=== PATIENT | female | born 1970 | race Caucasian/White ===

== ENCOUNTER → 2017-03-06 | Outpatient (CLI) | payer BC ==
[~2017-03-06] MED LIST: ASTRAGALUS PO; CAT PO; CEPH500C2 PO; EFF/375 PO; FEXO1TAB46 PO; GADAVIST IV PRN; OXYC-57 PO; PROC1TAB5 PO; PSYL55.43 PO; SKULLCAP PO; TURMPOW2 PO; Vit C PO; Vit D3 PO; [UNRECOGNIZED DRUG - OTHER] PO; [UNRECOGNIZED DRUG - OTHER] PO
--- NOTE | 2017-03-06 19:37 | DIAGNOSTIC IMAGING REPORT ---
LUMBAR SPINE MRI WITH AND WITHOUT CONTRAST HISTORY: Pain COLORECTAL CANCER C19 TECHNIQUE: Multiplanar multisequence MRI of the lumbar spine was performed both before and after the intravenous administration of contrast. COMPARISON: PET/CT dated 06/01/2016 FINDINGS: For the purpose of the report the L5-S1 disc space will be located on axial image . No prior studies available for comparison specifically of the lumbar region despite history of an abnormal study in November of this year. Signal characteristics of the vertebral bodies are unremarkable. Mild disc desiccation throughout. Mild disc bulges L4-L5 and L5-S1. No abnormal postcontrast sagittal enhancement L1-L2: No significant central canal or neural foraminal narrowing. L2-L3: No significant central canal or neural foraminal narrowing. L3-L4: No significant central canal or neural foraminal narrowing. L4-L5: Mild broad-based disc bulge. Minimal impact of the anterior thecal sac. Moderate degenerative change posterior limits. L5-S1: Mild disc bulge. Minimal contact with the anterior thecal sac. IMPRESSION: 1. Minimal to/mild broad-based disc bulges L4-L5 and L5-S1. 2. No evidence for significant disc herniation or spinal stenosis. 3. No evidence for an abnormal enhancing mass based on this exam. Electronically signed by: Carlos Grey M.D. 03/06/2017 7:35 PM Dictated Date/Time: 03/06/2017 7:30 PM
== END | disposition home or self-care (01) ==
LOC: C.MRI 18:34
PROVIDERS: ATTEND Nurse Practitioner Family
DX: C19 Malignant neoplasm of rectosigmoid junction (principal)

== ENCOUNTER 2017-05-18 13:20 | Emergency (ER) | payer BC ==
[~2017-05-18] VITALS: Ht 167.6 cm; Wt 79.0 kg
[~2017-05-18 13:20] MED LIST changes: -GADAVIST IV PRN; -OXYC-57 PO
[2017-05-18 13:29] VITALS: Ht 167.6 cm; Wt 79.0 kg
[2017-05-18] MEDS ORDERED: RABIES VACCINE (IMOVAX) HUMAN DIPL CELL 2.5 INTER.UNIT/ML SYR IM. ONE (14:00)
[2017-05-18] MEDS ORDERED: RABIES IMMUNE GLOBULIN (HUMAN) 150 INTER.UNIT/ML 2 ML VIAL IM. ONE (14:30)
--- NOTE | 2017-05-18 14:47 | EMERGENCY ROOM VISIT NOTE ---
History First contact with patient: 13:34 Chief Complaint: RABIES VACCINE Stated Complaint: RABIES SERIES History of Present Illness The patient is a 46 year old female who presents to the Emergency Room with family for evaluation of a bat exposure. The patient awakened in a bedroom where a live bat was found. The family killed the bat and then carefully took it outside. There was no bare hand contact with the bat. The family now presents to the emergency department for the rabies postexposure prophylaxis series. Review of Systems 6 system review was performed and was negative except for pertinent positives and negatives as indicated in history of present illness Past Medical/Surgical History Medical Problems: (1) Colorectal cancer Surgical Problems: (1) History of abdominal surgery Family History FH: cancer FH: diabetes mellitus FH: heart disease FH: hypertension Social History Smoking Status: Never Smoker Alcohol Use: none Drug Use: none Housing Status: lives with family Occupation Status: employed Current/Historical Medications No Active Prescriptions or Reported Meds Allergies Coded Allergies: Sumatriptan (Verified Allergy, Intermediate, Hot Sensations, Skin "Prickly " feeling, 12/16/15) Hydromorphone (Verified Adverse Reaction, Intermediate, Migraine, 12/16/15) Physical Exam Vital Signs Date Time Temp Pulse Resp B/P (MAP) Pulse Ox O2 Delivery O2 Flow Rate FiO2 05/18/17 13:29 36.7 73 18 109/74 99 Room Air Physical Exam CONSTITUTIONAL: Healthy and well nourished. Patient does not appear in any acute distress. HEENT: Normocephalic, atraumatic. Pupils equal, round and reactive. NECK: Full active range of motion without discomfort. RESPIRATORY: Clear to auscultation bilaterally with no wheezing, crackles, rhonchi or stridor. CARDIOVASCULAR: Regular rate and rhythm with no murmurs, rubs or gallops. INTEGUMENTARY: No rash or other significant dermatologic conditions noted. NEUROLOGIC: No focal neurologic deficits noted. Medical Decision & Procedures ED Course Patient history and physical exam were performed. Nurse's notes were reviewed. The patient was administered Imovax and HRIG 20 units per kilogram without any adverse reaction. The family was instructed to return on days 3, 7 and 14 for subsequent immunizations. Although the patient does have a history of colorectal cancer, she reports that she has recovered well, and has no further immunosuppression or compromise. Medical Decision Impression Primary Impression: Need for prophylactic vaccination against rabies Departure Information Dispostion Home / Self-Care Prescriptions No Active Prescriptions or Reported Meds Referrals No Doctor, Assigned Forms HOME CARE DOCUMENTATION FORM, IMPORTANT VISIT INFORMATION Patient Instructions My [facility] Additional Instructions Return on the following dates: Day 3 (05/21) Day 7 (05/25) Day 14 (06/01)
[2017-05-18 16:16] VITALS: BP 109/74; PULSE 73; TEMP 36.7; O2SAT 99
[2017-08-25] MEDS ORDERED: OXYC-57 PO (08:41)
== END 2017-05-18 16:17 | disposition home or self-care (01) ==
LOC: C.EDB 13:22 → C.EDD 16:17
DX: Z23 Encounter for immunization (principal); Z20.3 Contact with and (suspected) exposure to rabies; Z85.038 Personal history of other malignant neoplasm of large intestine; Z98.890 Other specified postprocedural states; Z88.5 Allergy status to narcotic agent; Z88.8 Allergy status to other drugs, medicaments and biological substances; Z80.9 Family history of malignant neoplasm, unspecified; Z83.3 Family history of diabetes mellitus; Z82.49 Family history of ischemic heart disease and other diseases of the circulatory system

== ENCOUNTER 2017-05-21 06:46 | Emergency (ER) | payer BC ==
[~2017-05-21] VITALS: Ht 167.6 cm; Wt 77.6 kg
[2017-05-21 06:50] VITALS: BP 106/76; PULSE 64; TEMP 36.9; O2SAT 100; Ht 167.6 cm; Wt 77.6 kg
[2017-05-21] MEDS ORDERED: RABIES VACCINE (IMOVAX) HUMAN DIPL CELL 2.5 INTER.UNIT/ML SYR IM. ONE (07:00)
--- NOTE | 2017-05-21 07:07 | EMERGENCY ROOM VISIT NOTE ---
ED Visit Note First contact with patient: 06:54 CHIEF COMPLAINT: Need second rabies shots HISTORY OF PRESENT ILLNESS: This 46-year-old female patient presents to the ER for her second rabies vaccine. The patient was seen here initially 3 days ago when she found a bat in her daughter's house where she was a bee sitting her granddaughter. The patient did not have any problems with the prior vaccine. REVIEW OF SYSTEMS: 6 system review was performed and was negative unless stated otherwise in history of present illness. PMH: The patient is healthy; colorectal cancer SOCIAL HISTORY: Patient lives with her family. The patient denies any tobacco or alcohol use. PHYSICAL EXAM: Vital Signs: Were reviewed Reviewed Nurse's notes. GENERAL: 38- year-old white female appears in no acute distress. MENTAL Status: Alert and oriented 3. SKIN: Clear, no visible bites noted EMERGENCY DEPARTMENT COURSE: The patient was evaluated. The patient was given Imovax IM. The patient was discharged home in stable condition. DIAGNOSIS: Post exposure rabies prophylaxis DISCHARGE INSTRUCTIONS: Continue rabies vaccine schedule as previously directed. Current/Historical Medications No Active Prescriptions or Reported Meds Allergies Coded Allergies: Sumatriptan (Verified Allergy, Intermediate, Hot Sensations, Skin "Prickly " feeling, 12/16/15) Hydromorphone (Verified Adverse Reaction, Intermediate, Migraine, 12/16/15) Vital Signs Date Time Temp Pulse Resp B/P (MAP) Pulse Ox O2 Delivery O2 Flow Rate FiO2 05/21/17 06:50 36.9 64 18 106/76 100 Room Air Departure Information Prescriptions No Active Prescriptions or Reported Meds Referrals Blanca Atkins, C.R.N.PMigue (PCP) Patient Instructions [facility]
[2017-08-25] MEDS ORDERED: OXYC-57 PO (08:41)
== END 2017-05-21 07:24 | disposition home or self-care (01) ==
LOC: C.EDB 06:47 → C.EDA 07:24
DX: Z23 Encounter for immunization (principal); Z20.3 Contact with and (suspected) exposure to rabies

== ENCOUNTER 2017-05-25 07:15 | Emergency (ER) | payer BC ==
[~2017-05-25] VITALS: Ht 167.6 cm; Wt 77.7 kg
[2017-05-25 07:19] VITALS: BP 112/75; PULSE 75; TEMP 36.6; O2SAT 99; Ht 167.6 cm; Wt 77.7 kg
--- NOTE | 2017-05-25 07:25 | EMERGENCY ROOM VISIT NOTE ---
History First contact with patient: 07:21 Chief Complaint: RABIES VACCINE REPEAT VISIT Stated Complaint: REPEAT RABIES History of Present Illness The patient is a 46 year old female who presents to the Emergency Room for her third Imovax injection on day 7. The patient denies any adverse reactions to her prior injections. The patient and family were started on post exposure prophylaxis after being exposed to a bat in the bedroom while sleeping. Although they discarded initial bat, they did capture another bat that was tested positive for rabies. The patient reports that the health department is going to quarantine the place until pest control can address the issue. Review of Systems 6 system review was performed and was negative except for pertinent positives and negatives as indicated in history of present illness Past Medical/Surgical History Medical Problems: (1) Colorectal cancer Surgical Problems: (1) History of abdominal surgery Family History FH: cancer FH: diabetes mellitus FH: heart disease FH: hypertension Social History Smoking Status: Former Smoker Alcohol Use: none Drug Use: none Housing Status: lives with family Occupation Status: employed Current/Historical Medications No Active Prescriptions or Reported Meds Allergies Coded Allergies: Sumatriptan (Verified Allergy, Intermediate, Hot Sensations, Skin "Prickly " feeling, 05/25/17) Hydromorphone (Verified Adverse Reaction, Intermediate, Migraine, 05/25/17) Physical Exam Vital Signs Date Time Temp Pulse Resp B/P (MAP) Pulse Ox O2 Delivery O2 Flow Rate FiO2 05/25/17 07:19 36.6 75 16 112/75 99 Room Air Physical Exam CONSTITUTIONAL: Healthy and well nourished. HEENT: Normocephalic, atraumatic. Pupils equal, round and reactive. No scleral icterus. INTEGUMENTARY: No rash or other significant dermatologic conditions noted. NEUROLOGIC: No focal neurologic deficits noted. Medical Decision & Procedures Medications Administered Medications (Trade) Dose Ordered Sig/Tal Route Start Time Stop Time Status Last Admin Dose Admin Rabies Vaccine Human Diploid Cell (Imovax Rabies) 2.5 interunit ONCE ONCE IM. 05/25/17 07:30 05/25/17 07:31 DC 05/25/17 07:47 2.5 INTERUNIT ED Course Patient history and physical exam were performed. Vital signs were reviewed and normal. The patient received Imovax IM without any adverse reaction. She will return on day 14 for her fourth and final injection. Medical Decision Impression Primary Impression: Need for prophylactic vaccination against rabies Departure Information Dispostion Home / Self-Care Prescriptions No Active Prescriptions or Reported Meds Forms HOME CARE DOCUMENTATION FORM, IMPORTANT VISIT INFORMATION Patient Instructions My [facility] Additional Instructions Return on 06/01 for your next and final Imovax injection
[2017-05-25] MEDS ORDERED: RABIES VACCINE (IMOVAX) HUMAN DIPL CELL 2.5 INTER.UNIT/ML SYR IM. ONE (07:30)
[2017-08-25] MEDS ORDERED: OXYC-57 PO (08:41)
== END 2017-05-25 08:04 | disposition home or self-care (01) ==
LOC: C.EDB 07:16 → C.EDA 08:04
DX: Z23 Encounter for immunization (principal); Z20.3 Contact with and (suspected) exposure to rabies; Z85.038 Personal history of other malignant neoplasm of large intestine; Z87.891 Personal history of nicotine dependence; Z83.3 Family history of diabetes mellitus; Z82.49 Family history of ischemic heart disease and other diseases of the circulatory system

== ENCOUNTER 2017-06-01 06:56 | Emergency (ER) | payer BC ==
[~2017-06-01] VITALS: Ht 167.6 cm; Wt 77.7 kg
[2017-06-01 06:59] VITALS: BP 105/71; PULSE 78; TEMP 36.5; O2SAT 95; Ht 167.6 cm; Wt 77.7 kg
--- NOTE | 2017-06-01 07:05 | EMERGENCY ROOM VISIT NOTE ---
ED Visit Note First contact with patient: 07:01 History of Present Illness The patient is a 46 year old female who presents to the Emergency Room for final rabies vaccine. The patient initially had a bat in her bedroom. No known bite. The patient denies any problems prior vaccines. Review of Systems 6 system review was performed and was negative except for pertinent positives and negatives as indicated in history of present illness Past Medical/Surgical History Medical Problems: (1) Colorectal cancer Surgical Problems: (1) History of abdominal surgery Family History FH: cancer FH: diabetes mellitus FH: heart disease FH: hypertension Social History Smoking Status: Never Smoker Alcohol Use: none Drug Use: none Housing Status: lives with family Occupation Status: employed Current/Historical Medications No Active Prescriptions or Reported Meds Allergies Coded Allergies: Sumatriptan (Verified Allergy, Intermediate, Hot Sensations, Skin "Prickly " feeling, 12/16/15) Hydromorphone (Verified Adverse Reaction, Intermediate, Migraine, 12/16/15) PHYSICAL EXAM: Vital Signs: Were reviewed Reviewed Nurse's notes. GEN.: 46-year -old female appears in no acute distress. MENTAL Status: Alert and oriented 3. EMERGENCY DEPARTMENT COURSE: The patient was given Imovax IM. DIAGNOSIS: Post exposure rabies prophylaxis DISCHARGE INSTRUCTIONS: No further vaccines necessary. Current/Historical Medications No Active Prescriptions or Reported Meds Allergies Coded Allergies: Sumatriptan (Verified Allergy, Intermediate, Hot Sensations, Skin "Prickly " feeling, 05/25/17) Hydromorphone (Verified Adverse Reaction, Intermediate, Migraine, 05/25/17) Vital Signs Date Time Temp Pulse Resp B/P (MAP) Pulse Ox O2 Delivery O2 Flow Rate FiO2 06/01/17 06:59 36.5 78 16 105/71 95 Room Air Departure Information Prescriptions No Active Prescriptions or Reported Meds Referrals Blanca Atkins C.R.NMiguePMigue (PCP) [facility] Instructions [facility]
[2017-06-01] MEDS ORDERED: RABIES VACCINE (IMOVAX) HUMAN DIPL CELL 2.5 INTER.UNIT/ML SYR IM. ONE (07:15)
[2017-08-25] MEDS ORDERED: OXYC-57 PO (08:41)
== END 2017-06-01 07:23 | disposition home or self-care (01) ==
LOC: C.EDB 06:57 → C.EDA 07:23
DX: Z23 Encounter for immunization (principal); Z20.3 Contact with and (suspected) exposure to rabies; Z85.048 Personal history of other malignant neoplasm of rectum, rectosigmoid junction, and anus; Z98.890 Other specified postprocedural states; Z88.5 Allergy status to narcotic agent; Z88.8 Allergy status to other drugs, medicaments and biological substances; Z80.9 Family history of malignant neoplasm, unspecified; Z83.3 Family history of diabetes mellitus; Z82.49 Family history of ischemic heart disease and other diseases of the circulatory system

== ENCOUNTER → 2017-06-13 | Outpatient (CLI) | payer BC ==
[~2017-06-13] MED LIST changes: -ASTRAGALUS PO; -CAT PO; -CEPH500C2 PO; -EFF/375 PO; -FEXO1TAB46 PO; +OPTIRAY 320 IV PRN; +OXYC-57 PO; -PROC1TAB5 PO; -PSYL55.43 PO; -SKULLCAP PO; -TURMPOW2 PO; -Vit C PO; -Vit D3 PO; -[UNRECOGNIZED DRUG - OTHER] PO; -[UNRECOGNIZED DRUG - OTHER] PO
--- NOTE | 2017-06-14 06:47 | DIAGNOSTIC IMAGING REPORT ---
(CHEST) THORAX WITH CT DOSE: 1011.41 mGycm HISTORY: Carcinoma RECTAL CA TECHNIQUE: Multiaxial CT images of the chest were performed following the intravenous administration of contrast. COMPARISON: None. FINDINGS: The lungs are clear. The mediastinal vascular structures are within normal limits. No mediastinal or hilar lymphadenopathy. No pleural effusion or pneumothorax. Limited views of the upper abdomen demonstrate a normal liver and spleen. IMPRESSION: No significant abnormality identified within the chest. No change from the prior study The above report was generated using voice recognition software. It may contain grammatical, syntax or spelling errors. Electronically signed by: Carlos Grey M.D. 06/13/2017 2:37 PM Dictated Date/Time: 06/13/2017 2:35 PM
--- NOTE | 2017-06-14 06:47 | DIAGNOSTIC IMAGING REPORT ---
CT OF THE ABDOMEN AND PELVIS WITH CONTRAST CLINICAL HISTORY: Rectal cancer. COMPARISON STUDY: CT of the abdomen and pelvis April 29, 2016, PET/CT June 01, 2016 and MRI of the lumbar spine March 06, 2017. TECHNIQUE: Following IV administration of 119 mL of Optiray-320, axial images of the abdomen and pelvis were obtained from the lung bases to the proximal femurs. Images were reviewed in the axial, sagittal, and coronal planes. IV contrast was administered without complication. FINDINGS: The chest will be reported separately. Mild splenomegaly is unchanged. A 6 mm right hepatic lobe cyst is again noted. There are no new hepatic lesions. The adrenal glands, kidneys and pancreas are normal. There is no evidence for a bowel obstruction. A rectosigmoid anastomosis is noted. The postoperative appearance is unchanged. No enlarged abdominal or pelvic lymph nodes are present. There is no free fluid. No suspicious osseous lesions are present. Major vasculature of the abdomen and pelvis is patent. There is no biliary or pancreatic ductal dilatation. IMPRESSION: No evidence of metastatic disease within the abdomen or pelvis. Electronically signed by: Kwesi Mancini M.D. 06/13/2017 3:57 PM Dictated Date/Time: 06/13/2017 2:31 PM
== END ==
LOC: C.CTS 13:24
PROVIDERS: ATTEND Colon & Rectal Surgery
DX: C20 Malignant neoplasm of rectum (principal)

== ENCOUNTER 2017-08-25 06:01 | Day surgery (SDC) | payer BC ==
[~2017-08-25] VITALS: Ht 167.6 cm; Wt 77.2 kg
--- NOTE | 2017-08-25 05:57 | History and Physical ---
History & Physical Date of Service Aug 25, 2017. History & Physical Chief Complaint: Colon cancer History of Present Illness The patient is a 45 year old female with colon cancer. She had a port insertion for chemotherapy. She is here for removal of the port. Denies chest pain or SOB. Allergies Hydromorphone (Verified Allergy, Unknown, Migraine, 09/21/15) Sumatriptan (Verified Allergy, Unknown, Hot Sensations, Skin "Prickly" feeling, 09/21/15) Surgical / Medical History Hx Cardiac Surgery: No Hx Abdominal Surgery: Yes (hystectomt;colectomy) Hx Cancer Surgery: Yes (colectomy) Hx Thoracic Surgery: No Hx Orthopedic: No Hx Urinary Tract Surgery: No HX Other Surgery: No Past Medical/Surgical History: Cancer Social History Smoking Status: Never Smoker Hx Tobacco Use In Past Year?: No Hx Alcohol Use - Type & Amnt: Yes (one glass wine weekly) Hx Substance Use -Type & Amnt: No Review of Systems Constitutional: No chills, No diaphoresis, No fatigue, No fever, No malaise, No problem reported, No sweats, No weakness, No weight gain, No weight loss Skin: No abnormal mole, No change in color, No change in hair/nails, No dryness , No lesions, No lumps, No problem reported, No rash Eyes: No blurred vision, No discharge, No double vision, No dryness, No eye pain, No irritation, No itching, No photophobia, No problem reported, No redness , No tearing, No visual changes ENMT: No dental pain, No ear discharge, No ear pain, No epistaxis, No gum swelling, No loss of hearing, No mouth pain, No mouth swelling, No nasal congestion, No nasal pain, No problem reported, No rhinorrhea, No sore throat, No stridor, No throat swelling, No tinnitus Respiratory: No CLINE, No PND, No cough, No cyanosis, No dyspnea, No hemoptysis, No orthopnea, No problem reported, No short of breath, No sputum production, No stridor, No wheezing Cardiovascular: No chest pain, No chest pressure, No chest tightness, No cyanosis, No diaphoresis, No edema, No intermittent claudication, No lightheadedness, No mumur, No orthopnea, No palpitations, No paroxysmal nocturnal dyspnea, No problem reported, No syncope Gastrointestinal: No abdominal pain, No anorexia, No appetite changes, No belching, No constipation, No diarrhea, No dysphagia, No flatulence, No food intolerance, No heartburn, No hematemesis, No hematochezia, No hemorrhoids, No indigestion, No nausea, No problem reported, No rectal bleeding, No stool changes, No vomiting Genitourinary - Female: No breast problems, No dysmenorrhea, No dysuria, No hematuria, No hesitancy, No menorrhagia, No metrorrhagia, No , No problem reported, No rash, No urinary frequency, No urinary incontinence, No urinary retention, No urinary urgency, No vaginal bleeding, No vaginal discharge , No vaginal itching, No vulvadynia Musculoskeletal: No back pain, No gout, No joint pain, No joint swelling, No muscle pain, No muscle stiffness, No muscle weakness, No neck pain, No problem reported Neurologic: No LOC, No dizziness, No headache, No lethargy, No memory loss, No numbness, No paresthesia, No pre-existing deficit, No problem reported, No seizures, No tics, No tingling, No tremors, No vertigo, No weakness Psychiatric: No alcohol abuse, No anxiety, No auditory hallucinations, No depression, No drug abuse, No homicidal ideation, No mood changes, No problem reported, No suicidal ideation, No visual hallucinations Physical Exam: Constitutional: General Apperance: heathly-appearing, well-nourished, well-developed Level of Distress: NAD Ambulation: ambulating normally Psychiatric: Mental Status: active & alert, normal mood, normal affect Orientation: oriented except where noted, to time, to place, to person Memory: recent memory normal, remote memory normal Lungs: Auscultation: breath sounds normal Cardiovascular: Heart Auscultation: RRR Peripheral Pulses: Pulses: full and equal, in all extremities except if noted Abdomen: Inspection & Palpation: soft Extremities: Upper Right: no cyanosis, no edema, no varicosities, no palpable cord, no clubbing, no ulcers, no mottling Upper Left: no cyanosis, no edema, no varicosities, no palpable cord, no clubbing, no ulcers, no mottling Lower Right: no cyanosis, no edema, no varicosities, no palpable cord, no clubbing, no ulcers, no mottling Lower Left: no cyanosis, no edema, no varicosities, no palpable cord, no clubbing, no ulcers, no mottling Neurologic: Cranial Nerves: grossly intact Sensation: grossly intact Assessment and Plan Imp: Colon cancer S/P port insertion Plan: Patient for removal of infusaport. I have discussed the risks options and benefits of the procedure with the patient. The patient understands the risks options and benefits and agrees to the procedure.
[~2017-08-25 06:01] MED LIST changes: +CEFAZOLIN 1000MG/55 ML D5W IV SCH; -OPTIRAY 320 IV PRN; -OXYC-57 PO; +SODIUM CHLORIDE 0.9% 1000ML 1,000 ML IV SCH; +SODIUM CHLORIDE 0.9% 1000ML IV SCH
[2017-08-25 06:20] VITALS: BP 98/58; PULSE 78; TEMP 36.6; O2SAT 98; Ht 167.6 cm; Wt 77.2 kg
[2017-08-25 07:45] VITALS: BP 98/58; PULSE 78; TEMP 36.6; O2SAT 98
[2017-08-25] MEDS ORDERED: MIDAZOLAM HCL 1 MG/ML 2ML VIAL ONE (07:45)
[2017-08-25] MEDS ORDERED: FENTANYL CITRATE INJ 50 MCG/1 ML 2 ML VIAL ONE (07:46)
--- NOTE | 2017-08-25 08:07 | History & Physical Bridge Note ---
H&P Re-Evaluation Bridge Note: I have examined the patient, reviewed the History & Physical and in the interval since the performance of the History & Physical I have noted the following changes of clinical significance: No changes noted
--- NOTE | 2017-08-25 08:08 | Procedure Note ---
Pre-Mod Sedation Assessment General Date of Moderate Sedation: Aug 25, 2017. Vital Signs: Vital Signs Past 12 Hours Date Time Temp Pulse Resp B/P (MAP) Pulse Ox O2 Delivery O2 Flow Rate FiO2 08/25/17 07:45 36.6 78 18 98/58 98 Room Air 08/25/17 06:20 36.6 78 18 98/58 (71) 98 Room Air Pre-Sedation Airway Assessment Oral Cavity: WNL Short Thick Neck: No Hx of Sleep Apnea: No Smoking Status: Never Smoker Mallampati Classification: Class I ASA Classification: Class I Notes The planned sedation has been discussed with the patient and consent obtained. I have identified the patient, determined the appropriateness of sedation and have assessed the patient immediately prior to the procedure. All medicine(s) and interventions are by my order.
[2017-08-25] MEDS ORDERED: LIDOCAINE HCL 1% 20 ML VIAL ONE (08:15)
[2017-08-25] MEDS ORDERED: MIDAZOLAM HCL 1 MG/ML 2ML VIAL IV ONE ×2 (08:20→08:23)
[2017-08-25] MEDS ORDERED: FENTANYL CITRATE INJ 50 MCG/1 ML 2 ML VIAL IV ONE (08:20)
[2017-08-25] MEDS ORDERED: LIDOCAINE HCL 1% 20 ML VIAL INJ ONE (08:23)
--- NOTE | 2017-08-25 08:40 | [facility] Post Operative Brief Note ---
Immediate Operative Summary Operative Date Aug 25, 2017. Pre-Operative Diagnosis status post port insertion Post-Operative Diagnosis same Procedure(s) Performed Removal Of Aport, Moderate Concious Sedation [address] Delgadillo [employer] Translator Surgeon(s) Lizbeth Pearl MD vascular resident Estimated Blood Loss 5 ml Findings catheter and port removed Specimens A. explanted aport Anesthesia Local with sedation Complication(s) None Disposition
--- NOTE | 2017-08-25 08:40 | Procedure Note ---
Post-Moderate Sedation Plan General Date of Moderate Sedation Aug 25, 2017. Vital Signs: Vital Signs Past 12 Hours Date Time Temp Pulse Resp B/P (MAP) Pulse Ox O2 Delivery O2 Flow Rate FiO2 08/25/17 07:45 36.6 78 18 98/58 98 Room Air 08/25/17 06:20 36.6 78 18 98/58 (71) 98 Room Air Review - Discharge Plan Post Moderate Sedation Plan: On clinical assessment, the patient appears to have tolerated the conscious sedation without complications. Patient is recovering as anticipated. Patient will continue to be monitored by nursing and may be discharged when conscious sedation discharge criteria are met.
[2017-08-25] MEDS ORDERED: OXYC-57 PO (08:41)
--- NOTE | 2017-08-25 08:43 | [facility] Operative Report ---
Operative Report Operative Date Aug 25, 2017. Pre-Operative Diagnosis status post port insertion, port no longer needed Post-Operative Diagnosis same Procedure(s) Performed Removal Of Aport, Moderate Concious Sedation [address] Delgadillo Jumpbasting Facing Baster Surgeon(s) Lizbeth Pearl Fellow Estimated Blood Loss 5 ml Findings Port and catheter removed Specimens A. explanted aport Drains none Anesthesia local + concious sedation Complication(s) None Disposition Recovery Room / PACU Indications Ms. Moon has completed her chemotherapy and no longer needs her port. She was advised of the risks and benefits of undergoing port removal and agreed to the above procedure Description of Procedure Patient was taken to the angio suite and placed in the supine position. The left side of the neck and chest wall were prepped and draped in a sterile manner. Local anesthesia was then administered to the appropriate areas of the neck and chest wall. A transverse incision was made below the clavicle on the chest wall in the line of the old incision. Bleeding was controlled using cautery. Using sharp and blunt dissection the port and fibrin sheath were dissected free and removed. The catheter slid out easily. Adequate hemostasis was then obtained. Once adequate hemostasis was noted the wound was then closed. The incision was closed using a 3-0 Vicryl suture for the subcutaneous layer and a 4-0 Vicryl subcuticular stitch for the skin layer. Steri-Strips were used for a dressing on the incision. Pressure was applied to the catheter site over the internal jugular vein. The patient left the angio suite in good condition and tolerated the procedure well. I attest to the content of the Intraoperative Record and any orders documented therein. Any exceptions are noted below.
--- NOTE | 2017-08-25 08:43 | Discharge Instructions ---
Discharge Instructions Date of Service Aug 25, 2017. Visit Reason for Visit: Colon Cancer Discharge Discharge Diagnosis / Problem: Status post port placement Discharge Goals Goal(s): Therapeutic intervention Activity Recommendations Activity Limitations: per Instructions/Follow-up section Shower/Bathe: tomorrow, keep incision dry Anesthesia . Post Anesthesia Instructions: If you have had General Anesthesia or IV Sedation: * Do not drive today. * Resume driving when surgeon permits. * Do not make important decisions or sign legal documents today. * Call surgeon for: 1. Temperature elevations greater than 101 degrees F. 2. Uncontrollable pain. 3. Excessive bleeding. 4. Persistent nausea and vomiting. 5. Medication intolerance (nausea, vomiting or rash). * For nausea and vomiting use only clear liquids such as: tea, soda, bouillon until nausea subsides, then gradually increase diet as tolerated. * If you have any concerns or questions, call your surgeon's office. If physician is unavailable and it is an emergency, call 911 or go to the nearest emergency room. . Instructions / Follow-Up Instructions / Follow-Up Call [phone] to schedule a follow up appointment if one not already scheduled. ACTIVITY RECOMMENDATIONS: See Above SPECIAL CARE INSTRUCTIONS: Call your doctor if: * Temperature above 101 degrees * Pain not relieved by pain medicine ordered * There is increased drainage or redness from any incision * You have any unanswered questions or concerns. Diet Recommendations Recommended Home Diet: resume previous diet Procedures Procedures Performed: Removal Of Aport, Moderate Concious Sedation 0820 to 0838 Pending Studies Studies pending at discharge: no Medical Emergencies . Who to Call and When: Medical Emergencies: If at any time you feel your situation is an emergency, please call 911 immediately. . Non-Emergent Contact Non-Emergency issues call your: Surgeon . . "Provider Documentation" section prepared by Cj Delgadillo. .
[2017-08-25] MEDS ORDERED: OXYCODONE/ACETAMINOPHEN 5-325 TAB PO PRN (08:45)
[2017-08-25 08:50] VITALS: BP 100/71; PULSE 67; TEMP 36.6
[2017-08-25 09:20] VITALS: BP 101/72; PULSE 68; TEMP 36.4; O2SAT 98
== END 2017-08-25 09:50 | disposition home or self-care (01) ==
LOC: C.ACU 06:01
PROVIDERS: ATTEND Surgery Vascular Surgery
DX: Z45.2 Encounter for adjustment and management of vascular access device (principal); Z85.038 Personal history of other malignant neoplasm of large intestine; Z92.21 Personal history of antineoplastic chemotherapy; Z90.49 Acquired absence of other specified parts of digestive tract

== ENCOUNTER 2017-11-22 08:05 | Emergency (ER) | payer BC ==
[~2017-11-22] VITALS: Ht 165.1 cm; Wt 78.8 kg
[~2017-11-22 08:05] MED LIST changes: -CEFAZOLIN 1000MG/55 ML D5W IV SCH; +OXYC-57 PO; -SODIUM CHLORIDE 0.9% 1000ML 1,000 ML IV SCH; -SODIUM CHLORIDE 0.9% 1000ML IV SCH
[2017-11-22 08:08] VITALS: TEMP 36.3; Ht 165.1 cm; Wt 78.8 kg
[2017-11-22] MEDS ORDERED: ONDANSETRON INJ 2 MG/ML 2 ML VIAL IV PRN (08:30)
--- NOTE | 2017-11-22 08:35 | EMERGENCY ROOM VISIT NOTE ---
History Report prepared by Alonso: Alma Rosa Hardin Under the Supervision of: Dr. Matthias Bethea M.D. First contact with patient: 08:15 Chief Complaint: HEADACHE Stated Complaint: FREEDMAN,NAUSEA History of Present Illness The patient is a 47 year old female who presents to the Emergency Room with complaints of a constant pressure headache beginning five hours ago. The patient reports neck pain, chills, vomiting, nausea, and dizziness. She reports her symptoms today are similar to when she had has sinus infections or congestion. She denies any fever or drainage down the back of her throat. The patient has a history of colon cancer and is currently disease free. She had chemotherapy treatment as well as colorectal surgery and a hysterectomy. Source of History: patient Onset: 5 hours ago Position: head Quality: ache, pressure Timing: constant Associated Symptoms: + chills, + headache, + neck pain, + nausea, + vomiting , No fevers Review of Systems All systems have been listed, reviewed, and are negative other than those previously mentioned. Please see Additional Medical History Sheet. Past Medical & Surgical Medical Problems: (1) Colorectal cancer Surgical Problems: (1) History of abdominal surgery Family History FH: cancer FH: diabetes mellitus FH: heart disease FH: hypertension Social History Smoking Status: Never Smoker Alcohol Use: none Drug Use: none Housing Status: lives with family Occupation Status: employed Current/Historical Medications Scheduled PRN Acetamin/Butalbital/Caffeine (Fioricet), 1-2 TAB PO Q4 PRN for headache Allergies Coded Allergies: Sumatriptan (Verified Allergy, Intermediate, Hot Sensations, Skin "Prickly " feeling, 11/22/17) Morphine (Verified Adverse Reaction, Unknown, migraine, 11/22/17) Uncoded Allergies: DERMABOND (Allergy, Intermediate, edema at site, 08/25/17) Physical Exam Vital Signs Date Time Temp Pulse Resp B/P (MAP) Pulse Ox O2 Delivery O2 Flow Rate FiO2 11/22/17 13:15 60 18 105/64 98 11/22/17 12:43 76 20 99/64 100 11/22/17 09:21 67 20 111/74 97 11/22/17 08:08 36.3 68 18 113/78 99 Room Air Physical Exam GENERAL: Patient awake, alert, oriented x 3. Patient follows commands. Patient does not appear toxic. Patient is adequately hydrated and well- nourished. SKIN: No erythema, pallor, cyanosis or rash HEENT: Normal head, pupils equal, reactive to light and accommodation. Ears normal. Tenderness over frontal and maxillary sinuses. Oral cavity and posterior pharynx appear normal. Neck: Supple, without signs of meningismus, without adenopathy, no neck vein distention. LUNGS: Clear to auscultation. No wheezes, no rales, no rhonchi. HEART: No murmurs. No gallops. No rubs ABDOMEN: No masses, no rebound, no hepatomegaly or splenomegaly. EXTREMITIES: No signs of trauma. No pedal or pretibial edema. No calf or thigh tenderness. NEUROLOGIC: Cranial nerves II-XII within normal limits. No gross motor sensory function deficits. Medical Decision & Procedures ER Provider Diagnostic Interpretation: Radiology results as stated below per my review and radiologist interpretation: SINUSES-MAXILLOFACIAL W/O FINDINGS: Pig Sticker topogram: Unremarkable. Paranasal sinuses and mastoid air cells clear. No sclerosis of the maxillary sinus bay to suggest chronic sinusitis. Ostiomeatal units and nasofrontal ethmoidal recesses patent. No dehiscence of the bony optic canals. Minimal rightward nasal septal deviation without evidence of bony spurring or ridging. No significant variant anatomy is evident. Orbits normal. Upper cervical spine normal. Limited intracranial evaluation within normal limits. IMPRESSION: No CT evidence of acute or chronic sinusitis at this time. No significant variant anatomy. Electronically signed by: Juan Peterson M.D. BRAIN WITHOUT CONTRAST FINDINGS: Ventricles and sulci normal in size. Brain parenchyma normal in appearance with preserved martinez-white differentiation. No mass effect or midline shift. No restricted diffusion to suggest acute ischemia. No hemorrhage. No extra-axial fluid collection. T2 skull base flow voids preserved. Postcontrast imaging was not performed. Bone marrow signal intensity within the calvarium within normal limits. IMPRESSION: 1. No acute intracranial abnormality. Electronically signed by: Juan Peterson M.D. Laboratory Results 11/22/17 08:40 Red Blood Count 4.72, Mean Corpuscular Volume 83.1, Mean Corpuscular Hemoglobin 29.4, Mean Corpuscular Hemoglobin Concent 35.5, Mean Platelet Volume 9.7, Neutrophils (%) (Auto) 72.8, Lymphocytes (%) (Auto) 23.1, Monocytes (%) (Auto) 3.5, Eosinophils (%) (Auto) 0.4, Basophils (%) (Auto) 0.2, Neutrophils # (Auto) 4.00, Lymphocytes # (Auto) 1.27, Monocytes # (Auto) 0.19, Eosinophils # (Auto) 0.02, Basophils # (Auto) 0.01 11/22/17 08:40 Test 11/22/17 08:40 White Blood Count 5.49 K/uL (4.8-10.8) Red Blood Count 4.72 M/uL (4.2-5.4) Hemoglobin 13.9 g/dL (12.0-16.0) Hematocrit 39.2 % (37-47) Mean Corpuscular Volume 83.1 fL (80-100) Mean Corpuscular Hemoglobin 29.4 pg (25-34) Mean Corpuscular Hemoglobin Concent 35.5 g/dl (32-36) Platelet Count 104 K/uL (130-400) Mean Platelet Volume 9.7 fL (7.4-10.4) Neutrophils (%) (Auto) 72.8 % Lymphocytes (%) (Auto) 23.1 % Monocytes (%) (Auto) 3.5 % Eosinophils (%) (Auto) 0.4 % Basophils (%) (Auto) 0.2 % Neutrophils # (Auto) 4.00 K/uL (1.4-6.5) Lymphocytes # (Auto) 1.27 K/uL (1.2-3.4) Monocytes # (Auto) 0.19 K/uL (0.11-0.59) Eosinophils # (Auto) 0.02 K/uL (0-0.5) Basophils # (Auto) 0.01 K/uL (0-0.2) RDW Standard Deviation 39.4 fL (36.4-46.3) RDW Coefficient of Variation 13.0 % (11.5-14.5) Immature Granulocyte % (Auto) 0.0 % Immature Granulocyte # (Auto) 0.00 K/uL (0.00-0.02) Anion Gap 7.0 mmol/L (3-11) Est Creatinine Clear Calc Drug Dose 98.1 ml/min Estimated GFR () 114.0 Estimated GFR (Non- 98.3 BUN/Creatinine Ratio 29.1 (10-20) Calcium Level 9.0 mg/dl (8.5-10.1) Laboratory results as stated above per my review. Medications Administered Medications (Trade) Dose Ordered Sig/Tal Route Start Time Stop Time Status Last Admin Dose Admin Hydromorphone HCl (Dilaudid Inj) 0.5 mg PRN PRN IV 11/22/17 08:30 11/22/17 13:45 DC 11/22/17 11:57 0.5 MG Ondansetron HCl (Zofran Inj) 4 mg Q4H PRN IV 11/22/17 08:30 11/22/17 13:45 DC 11/22/17 08:41 4 MG ED Course 0816: Past medical records reviewed. The patient was evaluated in room B10 . A complete history and physical examination was performed. 0830: Ordered Zofran Inj 4 mg IV, Dilaudid Inj 0.5 mg IV. 0956: The patient is feeling a little bit better. 1000: Discussed the patient's case with -Radiology. He recommended ordering a MRI on the patient for further clarification. 1005: The patient is agreeable to MRI. 1139: I updated the patient on her MRI results. 1243: The patient is feeling better and would like to go home. 1301: Upon reevaluation, the patient appeared to have improvement of her symptoms. I discussed today's findings with her. She verbalized agreement of the treatment plan. The patient was discharged home. Medical Decision I considered multiple diagnoses including TIA, CVA,sinus headache, and sinuitis. She had the patient is here with significant pain in her head consistent with prior history of sinus headache. The patient also has a history of migraine headaches but this pain is not the same. Blood work and CT were obtained. The patient does not have elevated white count. She does not appear to have opacification of any of her sinuses. Because of the patient's associated dizziness I was concerned about the possibility of a cerebellar stroke. She does not have other cerebellar signs currently. MRI was obtained which was negative for CVA. The patient did get significant relief with pain medication. She was reevaluated and felt better. The patient will be discharged with Fioricet. I do not believe the patient requires antibiotics. [place] Drug Monitoring Program Search Results: patient reviewed within database, no issues identified Medication Reconcilliation Current Medication List: was personally reviewed by me Blood Pressure Screening Patient's blood pressure: Normal blood pressure Consults Time Called: 957 Consulting Physician: -Radiology Returned Call: 1000 Discussed the patient's case with -Radiology. He recommended ordering a MRI on the patient for further clarification. Impression Primary Impression: Sinus headache Scribe Attestation The scribe's documentation has been prepared under my direction and personally reviewed by me in its entirety. I confirm that the note above accurately reflects all work, treatment, procedures, and medical decision making performed by me. Departure Information Dispostion Home / Self-Care Prescriptions Acetamin/Butalbital/Caffeine (FIORICET) 1 Ea Tab 1-2 TAB PO Q4 Y for headache, #20 TAB Prov: Matthias Bethea M.D. 11/22/17 Referrals Blanca Atkins, C.R.N.P. (PCP) Forms HOME CARE DOCUMENTATION FORM, IMPORTANT VISIT INFORMATION Patient Instructions My [facility] Additional Instructions 1-2 Fioricet every 4 hours as needed for headache. Do not drive or operate machinery while taking Fioricet. REST Follow-up with your family physician.
[2017-11-22] MEDS: HYDROmorphone INJ 0.5 MG/0.5 ML SYR IV PRN ×2 (08:43→11:57)
[2017-11-22 08:47] LABS: BASO % 0.2 %; BASO ABS # 0.01 K/uL (0-0.2); EOS % 0.4 %; EOS ABS # 0.02 K/uL (0-0.5); HEMATOCRIT 39.2 % (37-47); HEMOGLOBIN 13.9 g/dL (12.0-16.0); LYMPH % 23.1 %; LYMPH ABS # 1.27 K/uL (1.2-3.4); MEAN CELL VOLUME 83.1 fL (80-100); MEAN CORPUSCULAR HEMOGLOBIN 29.4 pg (25-34); MEAN CORPUSCULAR HGB CONC 35.5 g/dl (32-36); MEAN PLATELET VOLUME 9.7 fL (7.4-10.4); MONO % 3.5 %; MONO ABS # 0.19 K/uL (0.11-0.59); NEUT % 72.8 %; PLATELET COUNT 104 K/uL (130-400); RED CELL DISTRIBUTION WIDTH SD 39.4 fL (36.4-46.3); WHITE BLOOD COUNT 5.49 K/uL (4.8-10.8)
[2017-11-22 09:04] LABS: CREATININE 0.72 mg/dl (0.60-1.20); POTASSIUM 3.9 mmol/L (3.5-5.1)
--- NOTE | 2017-11-22 09:08 | DIAGNOSTIC IMAGING REPORT ---
SINUSES-MAXILLOFACIAL W/O CLINICAL HISTORY: 47 years-old Female presenting with sinus headache. TECHNIQUE: Multidetector CT of the sinuses was performed without the use of intravenous contrast. IV contrast: None. A dose lowering technique was used consistent with the principles of ALARA (as low as reasonably achievable). COMPARISON: 06/24/2014. CT DOSE (mGy.cm): The estimated cumulative dose is 619.70 mGy.cm. FINDINGS: Casket Trimmer topogram: Unremarkable. Paranasal sinuses and mastoid air cells clear. No sclerosis of the maxillary sinus bay to suggest chronic sinusitis. Ostiomeatal units and nasofrontal ethmoidal recesses patent. No dehiscence of the bony optic canals. Minimal rightward nasal septal deviation without evidence of bony spurring or ridging. No significant variant anatomy is evident. Orbits normal. Upper cervical spine normal. Limited intracranial evaluation within normal limits. IMPRESSION: No CT evidence of acute or chronic sinusitis at this time. No significant variant anatomy. Electronically signed by: Juan Peterson M.D. 11/22/2017 9:07 AM Dictated Date/Time: 11/22/2017 9:01 AM
--- NOTE | 2017-11-22 11:02 | DIAGNOSTIC IMAGING REPORT ---
BRAIN WITHOUT CONTRAST CLINICAL HISTORY: 47 years-old Female presenting with headache, nausea, dizziness, sinus pressure started at 3:00 AM, history of migraines. TECHNIQUE: Multisequence, multiplanar MR imaging of the brain was performed without the use of intravenous contrast. IV contrast: None. COMPARISON: MR brain from 11/04/2015. FINDINGS: Ventricles and sulci normal in size. Brain parenchyma normal in appearance with preserved martinez-white differentiation. No mass effect or midline shift. No restricted diffusion to suggest acute ischemia. No hemorrhage. No extra-axial fluid collection. T2 skull base flow voids preserved. Postcontrast imaging was not performed. Bone marrow signal intensity within the calvarium within normal limits. IMPRESSION: 1. No acute intracranial abnormality. Electronically signed by: Juan Peterson M.D. 11/22/2017 11:01 AM Dictated Date/Time: 11/22/2017 10:57 AM
[2017-11-22] MEDS ORDERED: FRCT/ PO (12:46)
[2017-11-22 13:15] VITALS: BP 105/64; PULSE 60; O2SAT 98
== END 2017-11-22 13:16 | disposition home or self-care (01) ==
LOC: C.EDB 08:07
DX: R51 Headache (principal); R42 Dizziness and giddiness; R11.2 Nausea with vomiting, unspecified; R68.83 Chills (without fever); M54.2 Cervicalgia; Z85.038 Personal history of other malignant neoplasm of large intestine; Z80.9 Family history of malignant neoplasm, unspecified; Z83.3 Family history of diabetes mellitus; Z82.49 Family history of ischemic heart disease and other diseases of the circulatory system

== ENCOUNTER → 2017-11-28 | Outpatient (CLI) | payer OTHER ==
[~2017-11-28] MED LIST changes: +FRCT/ PO; -OXYC-57 PO
== END | disposition home or self-care (01) ==
LOC: C.PAPS 09:45
PROVIDERS: ATTEND Obstetrics & Gynecology
DX: Z01.419 Encounter for gynecological examination (general) (routine) without abnormal findings (principal)

== ENCOUNTER 2020-11-17 19:40 | Inpatient (IN) ==
[2020-11-17] MEDS ORDERED: SODIUM CHLORIDE 0.9% 1000ML 1,000 ML IV STA (20:00)
[2020-11-17] MEDS ORDERED: ASPIRIN CHEW 324 MG PO STA (20:00)
[2020-11-17 20:12] LABS: Hematocrit (blood only) 40.4 % (37-47); Hemoglobin 14.3 g/dL (12.0-16.0); Mean Corpuscular Hemoglobin 29.9 pg (25-34); Mean Corpuscular Hgb Conc 35.4 g/dL (32-36); Mean Corpuscular Volume 84.5 fL (80-100); Mean Platelet Volume 9.9 fL (7.4-10.4); Platelet Count 190 K/uL (130-400); RDW Coefficient of Variation 13.1 % (11.5-14.5); RDW Standard Deviation 40.4 fL (36.4-46.3); Red Blood Count 4.78 M/uL (4.2-5.4); White Blood Count 9.32 K/uL (4.8-10.8)
--- NOTE | 2020-11-17 20:19 | XRay Report ---
SINGLE VIEW CHEST CLINICAL HISTORY: Atypical chest pain. FINDINGS: An AP, portable, upright chest radiograph is compared to study dated 09/23/2015 and correla rossy with chest CT dated 05/06/2020. The cardiomediastinal silhouette is unremarkable. The lungs and pl eural spaces are clear. No pneumothorax is seen. The bony thorax is grossly intact. IMPRESSION: No active disease in the chest. ACT 112: Negative or not required by law. Electronically signed by: Hari Malagon M.D. 11/17/2020 8:17 PM
[2020-11-17] MEDS ORDERED: niCARdipine HCL INJ 2.5 MG/ML 10 ML AMP ONE (20:21)
[2020-11-17] MEDS ORDERED: HEPARIN (PORCINE) 1000 UNIT/ML 10 ML (CATH LAB USE ONLY) ONE (20:21)
[2020-11-17] MEDS ORDERED: fentaNYL citrate 100 MCG/2 ML VIAL ONE (20:22)
[2020-11-17] MEDS ORDERED: NITROGLYCERIN/D5W 100MCG/ML 20ML SYR ONE (20:22)
[2020-11-17] MEDS ORDERED: MIDAZOLAM HCL 1 MG/ML 2ML VIAL ONE ×2 (20:22→20:47)
[2020-11-17 20:25] LABS: Partial Thromboplastin Ratio 0.8; Partial Thromboplastin Time 21.9 Seconds (21.0-31.0); Prothrombin Time 10.5 Seconds (9.0-12.0)
[2020-11-17 20:28] LABS: Alanine Aminotransferase 30 U/L (12-78); Albumin Level 3.8 gm/dl (3.4-5.0); Aspartate Aminotransferase 22 U/L (15-37); BUN Creatinine Ratio 22.4 (10-20); Basophils # (auto) 0.02 K/uL (0-0.2); Basophils % (auto) 0.2 %; Blood Urea Nitrogen 23 mg/dl (7-18); Calcium 9.6 mg/dl (8.5-10.1); Carbon Dioxide 27 mmol/L (21-32); Chloride 105 mmol/L (98-107); Creatinine Clr Calc Pharmacy 68.9 ml/min; Eosinophils # (auto) 0.06 K/uL (0-0.5); Eosinophils % (auto) 0.6 %; Est GFR (African American) 74.1; Glucose 114 mg/dl (70-99); Immature Granulocytes # (auto) 0.01 K/uL (0.00-0.02); Immature Granulocytes % (auto) 0.1 %; Lipase 255 U/L (73-393); Lymphocytes % (auto) 52.6 %; Magnesium 2.2 mg/dl (1.8-2.4); Monocytes % (auto) 7.5 %; Neutrophils # (auto) 3.63 K/uL (1.4-6.5); Potassium 3.2 mmol/L (3.5-5.1); Sodium 141 mmol/L (136-145)
[2020-11-17] MEDS ORDERED: POTASSIUM CHLORIDE / WTR 10 MEQ/100 ML PLCT IV ONE (20:30)
--- NOTE | 2020-11-17 20:37 | Pre Anesthesia Assessment ---
Date of Service November 17, 2020 Pre Sedation Assessment Vital Signs Temp Pulse Pulse Resp BP BP Pulse Ox 11/17/20 20:20 79 16 90/77 L 96 11/17/20 20:14 76 16 108/84 96 11/17/20 20:13 100 11/17/20 19:41 97.2 F L 72 20 102/70 100 Cardiovascular RRR, no murmur, no edema Respiratory normal respiratory effort, lungs clear to auscultation Pre-Sedation Airway Assessment Smoking Status: Never smoker Hx Sleep Apnea: No Hx Difficult Intubation: No Short, Thick Neck: No Thyromental Distance: > or= 3.5 Finger Breadths Oral Cavity: + WNL Mallampati Class: III ASA: ASA3 Procedure Planning Contraindications for Sedation: none Current Medications Reviewed: Yes Notes The planned sedation has been discussed with the patient. Informed Consent was obtained. I have identified the patient, determined the appropriateness of sedation and have assessed the patient immediately prior to the procedure. All medicine(s) and interventions are by my order.
[2020-11-17 20:38] LABS: Albumin Globulin Ratio 1.1 (0.9-2); Alkaline Phosphatase 99 U/L (45-117); Bilirubin,Total 0.7 mg/dl (0.2-1); Creatine Kinase 87 U/L (26-192); Creatine Kinase MB < 1.0 ng/ml (0.5-3.6); Globulin 3.5 gm/dl (2.5-4.0); Total Protein 7.3 gm/dl (6.4-8.2); Troponin I < 0.015 ng/ml (0-0.045)
--- NOTE | 2020-11-17 20:42 | Cardiology Consultation ---
Date of Consultation November 17, 2020 Assessment & Plan (1) Acute [place]: Presentation consistent with anterior STEMI and recommend proceeding with emergent cardiac catheterization and likely primary PCI. No apparent contraindications to procedure. Discussed risks, benefits, alternatives of procedure with patient and they are willing to proceed. Further recommendations pending findings of coronary angiography. History of Present Illness History of Present Illness 50-year-old woman here with acute chest pain and ECG concerning for acute [place]. Patient seen emergently in the ED after heart alert activated on arrival. No prior cardiac history. Cardiac risk factors include family history of coronary artery disease involving mother, maternal grandmother. Other medical issues include migraine headaches and history of colon cancer post curative resection. Chest pain began approximately 7 PM, around 40 minutes prior to arrival. States was lifting a heavy object when developed severe chest pain radiating to her back with associated shortness of breath. Pain at its worst 10 out of 10 on arrival. Denies similar symptoms in the past. Chest pain currently down to 2 out of 10 after IV fluids, aspirin. Blood pressure in the 90s to 100s. Serial ECGs have shown anterior ST elevations. Allergies Allergy/AdvReac Type Severity Reaction Status Date / Time sumatriptan Allergy Intermediate Hot Verified 11/17/20 20:35 Sensations, Skin "Prickly" feeling codeine AdvReac Severe Migraine Verified 11/17/20 20:35 fentanyl AdvReac Severe Migraine Verified 11/17/20 20:35 hydrocodone AdvReac Severe Migraine Verified 11/17/20 20:35 hydromorphone [From Dilaudid] AdvReac Severe Migraine Verified 11/17/20 20:35 morphine AdvReac Unknown migraine Verified 11/17/20 20:35 DERMABOND Allergy Intermediate edema at Uncoded 11/17/20 20:35 site Home Medications Medication Instructions Recorded Confirmed Type albuterol sulfate 2 puff INHALATION Q6H PRN 11/17/20 11/17/20 History azelastine 1 spray INTRANASAL DAILY 11/17/20 11/17/20 History naproxen [Naprosyn] 500 mg PO BID PRN 11/17/20 11/17/20 History trazodone 50 mg PO HS 11/17/20 11/17/20 History Patient History Surgical History (Updated 04/13/20 @ 13:23 by Maddie Lazaro MD) Hx of hysterectomy, total Tubal ligation status Family History Mother Cancer Diabetes Heart disease Hypertension Father Epilepsy Social History Smoking Status: Never smoker Preferred Language: Citizen Of [place] Review of Systems Review of Systems: Not completed in the setting of emergent situation Physical Exam Physical Exam: General: Comfortable HEENT: Sclerae anicteric, mask in place Lungs: Clear anteriorly Cardiac: Regular rate and rhythm, no murmurs. Abdomen: Soft, nontender Extremities: Warm, well perfused, no edema. 2+ radial pulses Skin: No rashes or lesions. Neuro: Nonfocal Psych: Alert orient x3, normal affect and mood Results & Data ([facility]) Vital Signs (Past 12 Hours) Vital Signs Temp Pulse Pulse Resp BP BP Pulse Ox 11/17/20 20:20 79 16 90/77 L 96 11/17/20 20:14 76 16 108/84 96 11/17/20 20:13 100 11/17/20 19:41 97.2 F L 72 20 102/70 100 PG Care Time/CCT Total # of Minutes Spent Total Time Spent with Patient: Total time spent is greater than 50% in coordination of care (as documented) at patient's floor/unit and/or counseling patient: Coding Level of Care Code 79490 Inpt Consult Level 5 Diagnoses Acute [place] I21.9
[2020-11-17] MEDS ORDERED: ICU PROTOCOL FOR HYPERGLYCEMIA PRN (21:21)
[2020-11-17] MEDS ORDERED: ACETAMINOPHEN 325 MG TAB PO PRN (21:21)
[2020-11-17] MEDS ORDERED: LORazepam 0.5 MG/1 ML VIAL IV PRN (21:21)
[2020-11-17] MEDS ORDERED: ONDANSETRON INJ 2 MG/ML 2 ML VIAL IV PRN (21:21)
--- NOTE | 2020-11-17 21:21 | Post Anesthesia Assessment ---
Date of Service November 17, 2020 Post Sedation Assessment Vital Signs Temp Pulse Pulse Resp BP BP Pulse Ox 11/17/20 20:20 79 16 90/77 L 96 11/17/20 20:14 76 16 108/84 96 11/17/20 20:13 100 11/17/20 19:41 97.2 F L 72 20 102/70 100 Recovery Score Activity: Moves 4 extremities Respiration: Deep Breath/Cough Circulation: +/-20% PreAnes Value Consciousness: Fully Awake Oxygen Saturation: O2 needed for >90% Discharge Sedation Level of Care: Fast Track Phase II Post Sedation Plan On clinical assessment, the patient appears to have tolerated the sedation without complications. Patient is recovering as anticipated. Patient will continue to be monitored by nursing and may be discharged when sedation discharge criteria are met per below protocol. Upon Completions of procedure up to 15 minutes continue every 5 minute vital signs and the P.A.R. score; then discharge to a Phase I or Fast Track to Phase II per the following guidelines: * Discharge Patient to appropriate Phase II area if PAR is 8 or greater or return to pre- procedure baseline. The post - procedure orders will be as directed. * If PAR score is less than 8 or not return to pre-procedure baseline then patient will follow Phase I monitoring till PAR is reached for Phase II. The Phase I may be done in procedure room or may call to secure a Phase I area. * If naloxone or flumazenil are used for reversal, hold in Phase I for continued monitoring from when last reversal dose was given for a minimum of 60 minutes or longer pending the nurse and/or physician discretion of patient condition before discharge to Phase II. Please call the Sedation Physician to re-evaluate and complete post-note for discharge to Phase II area. Do NOT discharge from procedure sedation or Phase 1 until post- sedation evalu ation note is complete by procedure /sedation MD Sedation Discharge Instructions to be given to the patient at discharge to home.
[2020-11-17] MEDS ORDERED: POTASSIUM CHLORIDE CRTAB 20 MEQ TABCR PO STA (21:27)
[2020-11-17] MEDS ORDERED: SODIUM CHLORIDE 0.9% 1000ML 1,000 ML IV SCH (21:30)
[2020-11-17] MEDS ORDERED: ALBUTEROL HFA 8 GM INHALER INH PRN (21:31)
[2020-11-17] MEDS ORDERED: NITROGLYCERIN SL 0.4 MG/TAB TAB SL PRN (21:38)
--- NOTE | 2020-11-17 21:50 | Cardiac Catheterization ---
[facility] Data: [employer]ueling [place] Cardiac Status Clinical evaluation leading to the procedure CAD Presenation: STEMI Anginal Classification: CCS IV Heart Failure: No Cardiogenic Shock within 24 Hours: No Cardiac Arrest within 24 Hours: No Imaging Studies Past 6 Months: No Stress Studies Past 6 Months: No Diagnostic Physicians Name: Mark Anthony Tadeo MD Status: Emergency Closure Device Percutaneous Entry Location: Radial Closure Device: Radial Band Recommendations: Medical Therapy and/or Counseling Intraprocedure Events Significant Disection: No Perforation: No Cardiac Cath Procedure Full Procedure Date November 17, 2020 Pre-Procedure Diagnosis Pre-Procedure Diagnosis: STEMI AUC Score AUC Score: 9 Post-Procedure Diagnosis Post-Procedure Diagnosis: Normal Intracardiac Pressures and Cardiothoracic Finding (Spontaneous coronary artery dissection) Procedure(s) Performed Procedure(s) Performed: Coronary Angiography and Left Heart Cath Slack Cooper Mark Anthony Tadeo MD Loftsman/Woman(s) [place] Estimated Blood Loss Estimated Blood Loss: 15 Medication(s) Medication(s): Fentanyl, Heparin, Lidocaine 1%, Nicardipine, Nitroglycerin and Versed Summary of Findings Indication: Suspected acute VA with anterior ST elevations on ECG Access: 6 Fr right radial artery Catheters: EBU 3.5 guide, JR4 Findings: LM -angiographically normal LAD -angiographically normal until mid segment after third diagonal where acutely tapers with diffuse 50 to 60% arterial narrowing in the remainder of mid, distal segments. CORTNEY-3 flow in LAD Circumflex -angiographically normal RCA -dominant, angiographically normal LVEDP -2 Arterial Closure: TR band Summary: 1. 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 2. Remaining coronary arteries angiographically normal without atherosclerotic disease 3. Normal intracardiac filling pressure Recommendations: Patient with resolving chest pain and CORTNEY-3 flow in LAD. Recommend conservative management. Admit admit to ICU for continued monitoring Trend troponin until peak. Check echocardiogram in the a.m. Nitrates for residual chest pain Start low-dose beta-herb Single antiplatelet therapy with aspirin. Avoid additional anticoagulation Consider additional work-up for vasculopathy, possible FMD Hemodynamics Rest Ao:: / Final Ao: 105/69/86 LV: 106/2 Recommendations Recommendations: Medical Therapy and/or Counseling Specimens Specimens: None Radiation Exposure (mGy) 320 Contrast (mls) 25 Fluids (cc crystalloids) Fluids (cc crystalloids): 75 Drains Drains: None Anesthesia Moderate Procedural Complication(s) None Disposition ICU I attest to the content of the Intraoperative Record and any orders documented therein. Any exceptions are noted below. [facility] Card Cath Procedure Codes Cardiac Catheterization Procedure 1: Cardiovascular Cath Procedures: 56423 Coronaries and LHC (+/-LV) Moderate Sedation Procedure 1: Sedation/Anesthesia: 80382 Mod Sedation by the same physician;Init15 Min Child Age 5 & Up PG Care Time/CCT Total # of Minutes Spent Total Time Spent with Patient: Total time spent is greater than 50% in coordination of care (as documented) at patient's floor/unit and/or counseling patient:
[2020-11-17] MEDS: METOPROLOL TARTRATE 25 MG TAB PO SCH (22:06)
[2020-11-17] MEDS: NITROGLYCERIN 2% OINTMENT 30GM TUBE EXT SCH (22:07)
--- NOTE | 2020-11-17 23:01 | Emergency Department Note ---
Impression & Plan Acute DC ED Provider Note INFORMANT: Patient ED PROVIDER(S): Ty Perez MD CHIEF COMPLAINT: Chest pain PLAN: Disposition: Admitted Condition: Guarded MEDICAL DECISION MAKING: Patient presented to emergency department with chest pain. An ECG was performed and showed ST elevation. Heart alert was initiated. The patient was given aspirin. Chest x-ray was unremarkable. Blood work was obtained. She did not have any significant abnormalities seen on blood work except for a mildly low potassium. The patient's rhythm changed and a repeat ECG was performed. It revealed a wide QRS rhythm with a nonspecific intraventricular block. The patient was noted to then drop back into a normal sinus rhythm. She flipped back into a wide-complex rhythm again. This was seen multiple times on cardiac monitoring. The patient was evaluated in the ER by Dr. Tadeo. He agreed with the assessment of acute DC and given the patient's chest pain felt emergent cardiac catheterization was warranted. The patient was taken to the catheterization suite for further management. A K rider was ordered. Triage Nursing notes reviewed and agree them. Vital Signs: reviewed and remarkable for no significant abnormalities Differential diagnosis: Cardiac ischemia, aortic dissection, pulmonary embolism, pneumothorax, pneumonia, pericarditis, myocarditis, esophageal rupture, GERD, cholecystitis, pancreatitis, musculoskeletal, as well as other pathologies. Diagnostics interpreted by me: ECG #1 revealed a normal sinus rhythm at 69 bpm. Incomplete right bundle branch block. Anterior ST elevation present. No PVCs. Normal axis. Poor baseline data noted inferiorly. ECG #2 revealed a normal sinus rhythm at 67 bpm. There is improvement in the baseline data. The ST segments are improved. No PACs or PVCs. Normal axis. ECG #3 reveals a wide QRS rhythm at 98 bpm. There is left axis deviation and a nonspecific intraventricular conduction block. The ST segments are elevated. This is significantly different than ECG #2. ECG #4 reveals a normal sinus rhythm at [address] present. ST segments are much improved. The wide QRS rhythm has resolved. Cardiac Monitoring: Cardiac monitoring ordered by me: The patient was placed on continuous cardiac monitoring and observed. It revealed an initial normal sinus rhythm at 72 bpm. The patient was then noted to go into a wide-complex rhythm with rates up to 108 bpm. This then changed back to normal sinus rhythm. The patient went in and out of the wide-complex rhythm multiple times. She was also seen to be in bigeminy. Imaging studies: Chest x-ray. Findings: A chest x-ray was performed and revealed no pneumothorax, effusion, infiltrate, pulmonary edema, free air under the diaphragm, or wide mediastinum. Impression: No acute disease. Consultation(s): Interventional cardiology, Dr. Tadeo HPI: The patient is a 50 year old female who presents to the Emergency Room with complaints of chest pain. This started tonight at 1905 hrs. and is somewhat improved. The patient also notes the following associated symptoms, nausea, shortness of breath at the onset. The patient has found no relieving factors. Current pain is rated as 7/10. Pain on arrival was 10 out of 10 pt denies LOC, headache, fevers, chills, diaphoresis, visual changes, neck pain, breathing difficulties, vomiting, abdominal pain, back pain, melena, hematochezia, urinary symptoms, numbness, weakness, lymphadenopathy, rash, or other complaints. ROS: See above HPI for pertinent positives & negatives. A total of 10 systems reviewed and were otherwise negative. PAST MEDICAL HISTORY:See Below, migraine, colon cancer PAST SURGICAL HISTORY:See Below, partial colectomy FAMILY HISTORY:See Below, CAD SOCIAL HISTORY:See Below, non-smoker HOME MEDICATIONS:See Below ALLERGIES:See Below VITALS:See Below PHYSICAL EXAMINATION: GENERAL: Awake, alert, uncomfortable-appearing, in no distress HENT: Normocephalic, atraumatic. Oropharynx unremarkable. EYES: Normal conjunctiva. Sclera non-icteric. NECK: Inspection normal. Non-tender. Supple. No nuchal rigidity. FROM. No masses. RESPIRATORY: Clear to auscultation. No wheezes. No rales. Normal respiratory effort. CARDIAC: Normal rate. Normal rhythm. No murmurs. No rubs. Extremities warm and well perfused. Pulses equal. No JVD. GI: Soft, non-distended. No tenderness to palpation. No rebound or guarding. No masses. RECTAL: Deferred. MUSCULOSKELETAL: Atraumatic. Chest examination reveals no tenderness. The back is symmetrical on inspection without obvious abnormality. There is no CVA tenderness to palpation. No joint edema. LOWER EXTREMITIES: Calves are equal size bilaterally and non-tender. No edema. No discoloration. NEURO: Normal sensorium. No sensory or motor deficits noted. SKIN: No rash or jaundice noted. ED COURSE: Critical Care: I have personally spent greater than 45 minutes of critical care time in the direct management of this patient. This includes bedside care, interpretation of diagnostic studies, and testing, discussion with consultants, patient, and family members, and other required patient management activities. These minutes are in excess of all separately billable procedures. 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 Beliefs That Will Affect Care: None Current Living Situation: Alone Other Information That Helps Us Care for You: No Feels Safe at Home: Yes Safety Concerns: Feels Safe At This Time Assistive Devices: None Allergies Allergies Allergy/AdvReac Type Severity Reaction Status Date / Time sumatriptan Allergy Intermediate Hot Verified 11/17/20 20:35 Sensations, Skin "Prickly" feeling codeine AdvReac Severe Migraine Verified 11/17/20 20:35 fentanyl AdvReac Severe Migraine Verified 11/17/20 20:35 hydrocodone AdvReac Severe Migraine Verified 11/17/20 20:35 hydromorphone [From Dilaudid] AdvReac Severe Migraine Verified 11/17/20 20:35 morphine AdvReac Unknown migraine Verified 11/17/20 20:35 DERMABOND Allergy Intermediate edema at Uncoded 11/17/20 20:35 site Home Meds Home Medications Medication Instructions Recorded Confirmed albuterol sulfate 2 puff INHALATION Q6H PRN 11/17/20 11/17/20 azelastine 1 spray INTRANASAL DAILY 11/17/20 11/17/20 naproxen [Naprosyn] 500 mg PO BID PRN 11/17/20 11/17/20 trazodone 50 mg PO HS 11/17/20 11/17/20 Results & Data (ED) Vital Signs Vital Signs - 24 hr 11/17/20 19:41 11/17/20 20:13 11/17/20 20:14 Temperature 36.2 C L Temperature Source Temporal Artery Scan Pulse Rate 72 Pulse Rate [Right] 76 Pulse Rhythm Regular Pulse Rhythm [Right] Pulse Strength Normal Pulse Strength [Right] Respiratory Rate 20 16 Respiratory Effort / Characteristics Non-Labored Spontaneous Non-Labored Spontaneous Respiratory Depth Normal Normal Blood Pressure 102/70 Blood Pressure [Right Arm] 108/84 Blood Pressure Mean 80 Blood Pressure Mean [Right Arm] 92 Blood Pressure Position Sitting Blood Pressure Position [Right Arm] Pulse Oximetry 100 100 96 Oxygen Delivery Method Room Air Room Air Room Air Sepsis Recent Fever Within 48 Hours No Sepsis New/Unexplained Change in Mental Status N/A Sepsis Action Taken by Nursing No Action Required 11/17/20 20:20 Temperature Temperature Source Pulse Rate Pulse Rate [Right] 79 Pulse Rhythm Pulse Rhythm [Right] Regular Pulse Strength Pulse Strength [Right] Normal Respiratory Rate 16 Respiratory Effort / Characteristics Non-Labored Spontaneous Respiratory Depth Normal Blood Pressure Blood Pressure [Right Arm] 90/77 L Blood Pressure Mean Blood Pressure Mean [Right Arm] 81 Blood Pressure Position Blood Pressure Position [Right Arm] Lying Pulse Oximetry 96 Oxygen Delivery Method Room Air Sepsis Recent Fever Within 48 Hours Sepsis New/Unexplained Change in Mental Status Sepsis Action Taken by Nursing Laboratory Data Result diagrams: 11/17/20 19:50 11/17/20 19:50 Lab Results 11/17/20 11/17/20 11/17/20 Range/Units 19:50 19:50 19:50 WBC 9.32 (4.8-10.8) K/uL RBC 4.78 (4.2-5.4) M/uL Hgb 14.3 (12.0-16.0) g/dL Hct 40.4 (37-47) % MCV 84.5 (80-100) fL MCH 29.9 (25-34) pg MCHC 35.4 (32-36) g/dL RDW Std Deviation 40.4 (36.4-46.3) fL RDW Coeff of Jennifer 13.1 (11.5-14.5) % Plt Count 190 (130-400) K/uL MPV 9.9 (7.4-10.4) fL Immature Gran % (Auto) 0.1 % Neut % (Auto) 39.0 % Lymph % (Auto) 52.6 % Will % (Auto) 7.5 % Eos % (Auto) 0.6 % Baso % (Auto) 0.2 % Neut # (Auto) 3.63 (1.4-6.5) K/uL Lymph # (Auto) 4.90 H (1.2-3.4) K/uL Will # (Auto) 0.70 H (0.11-0.59) K/uL Eos # (Auto) 0.06 (0-0.5) K/uL Baso # (Auto) 0.02 (0-0.2) K/uL Immature Gran # (Auto) 0.01 (0.00-0.02) K/uL PT 10.5 (9.0-12.0) Seconds INR 1.0 (0.9-1.1) APTT 21.9 (21.0-31.0) Seconds PTT Ratio 0.8 Sodium 141 (136-145) mmol/L Potassium 3.2 L (3.5-5.1) mmol/L Chloride 105 (98-107) mmol/L Carbon Dioxide 27 (21-32) mmol/L Anion Gap 9.0 (3-11) BUN 23 H (7-18) mg/dl Creatinine 1.01 (0.6-1.2) mg/dl Est Cr Clr Drug Dosing 68.9 ml/min Est GFR ( Amer) 74.1 Est GFR (Non-Af Amer) 64.0 BUN/Creatinine Ratio 22.4 H (10-20) Glucose 114 H (70-99) mg/dl Calcium 9.6 (8.5-10.1) mg/dl Magnesium 2.2 (1.8-2.4) mg/dl Total Bilirubin 0.7 (0.2-1) mg/dl AST 22 (15-37) U/L ALT 30 (12-78) U/L Alkaline Phosphatase 99 (45-117) U/L Total Creatine Kinase 87 (26-192) U/L CK-MB (CK-2) < 1.0 (0.5-3.6) ng/ml CK/CKMB % Calc TNP Troponin I < 0.015 (0-0.045) ng/ml Total Protein 7.3 (6.4-8.2) gm/dl Albumin 3.8 (3.4-5.0) gm/dl Globulin 3.5 (2.5-4.0) gm/dl Albumin/Globulin Ratio 1.1 (0.9-2) Lipase 255 (73-393) U/L TSH 3.760 (0.300-4.500) uIu/ml COVID-19 Eval Order SARS-CoV-2, RNA, NAAT (NEGATIVE) 11/17/20 11/17/20 Range/Units 19:50 19:50 WBC (4.8-10.8) K/uL RBC (4.2-5.4) M/uL Hgb (12.0-16.0) g/dL Hct (37-47) % MCV (80-100) fL MCH (25-34) pg MCHC (32-36) g/dL RDW Std Deviation (36.4-46.3) fL RDW Coeff of Jennifer (11.5-14.5) % Plt Count (130-400) K/uL MPV (7.4-10.4) fL Immature Gran % (Auto) % Neut % (Auto) % Lymph % (Auto) % Will % (Auto) % Eos % (Auto) % Baso % (Auto) % Neut # (Auto) (1.4-6.5) K/uL Lymph # (Auto) (1.2-3.4) K/uL Will # (Auto) (0.11-0.59) K/uL Eos # (Auto) (0-0.5) K/uL Baso # (Auto) (0-0.2) K/uL Immature Gran # (Auto) (0.00-0.02) K/uL PT (9.0-12.0) Seconds INR (0.9-1.1) APTT (21.0-31.0) Seconds PTT Ratio Sodium (136-145) mmol/L Potassium (3.5-5.1) mmol/L Chloride (98-107) mmol/L Carbon Dioxide (21-32) mmol/L Anion Gap (3-11) BUN (7-18) mg/dl Creatinine (0.6-1.2) mg/dl Est Cr Clr Drug Dosing ml/min Est GFR ( Amer) Est GFR (Non-Af Amer) BUN/Creatinine Ratio (10-20) Glucose (70-99) mg/dl Calcium (8.5-10.1) mg/dl Magnesium (1.8-2.4) mg/dl Total Bilirubin (0.2-1) mg/dl AST (15-37) U/L ALT (12-78) U/L Alkaline Phosphatase (45-117) U/L Total Creatine Kinase (26-192) U/L CK-MB (CK-2) (0.5-3.6) ng/ml CK/CKMB % Calc Troponin I (0-0.045) ng/ml Total Protein (6.4-8.2) gm/dl Albumin (3.4-5.0) gm/dl Globulin (2.5-4.0) gm/dl Albumin/Globulin Ratio (0.9-2) Lipase (73-393) U/L TSH (0.300-4.500) uIu/ml COVID-19 Eval Order Covid19 IDNow atMMIC SARS-CoV-2, RNA, NAAT NEGATIVE (NEGATIVE) Administered Medications Sodium Chloride (Nss 1000ml) 1,000 mls @ 150 mls/hr IV .Q6H40M [facility] Stop: 11/18/20 04:09 Last Admin: 11/17/20 22:09 Dose: 150 mls/hr Documented by: [id number] Metoprolol Tartrate (Metoprolol Tartrate 25 Mg Tab) 12.5 mg PO BID [facility] Stop: 12/17/20 21:29 Last Admin: 11/17/20 22:06 Dose: 12.5 mg Documented by: [id number] Nitroglycerin (Nitroglycerin 2% Ointment 30gm Tube) 0.5 inch EXT Q6H [facility] Stop: 12/17/20 21:59 Last Admin: 11/17/20 22:07 Dose: Not Given Documented by: [id number] Discontinued Medications Aspirin (Aspirin Chew 324 Mg) 324 mg PO NOW [facility] Stop: 11/17/20 20:01 Last Admin: 11/17/20 20:04 Dose: 324 mg Documented by: [id number] Fentanyl Citrate (Fentanyl Citrate 100 Mcg/2 Ml Vial) Confirm Administered Dose 100 mcg .ROUTE .STK-MED ONE Stop: 11/17/20 20:23 Last Admin: 11/17/20 21:55 Dose: Not Given Documented by: [id number] Heparin Sodium (Porcine) (Heparin (Porcine) 1000 Unit/Ml 10 Ml (Nut [place] Use Only)) Confirm Administered Dose 10,000 units .ROUTE .STK-MED ONE Stop: 11/17/20 20:22 Last Admin: 11/17/20 21:55 Dose: Not Given Documented by: [id number] Heparin Sodium/Sodium Chloride (Heparin In Nss Infusion 1000 Unit/500 Ml (2 U/Ml) Bag) Confirm Administered Dose 3,000 units IV .STK-MED ONE Stop: 11/17/20 20:23 Last Admin: 11/17/20 21:55 Dose: Not Given Documented by: [id number] Sodium Chloride (Nss 1000ml) 1,000 mls @ 125 mls/hr IV .Q8H STA Stop: 11/18/20 03:59 Last Infusion: 11/17/20 21:47 Dose: 0 mls/hr Documented by: [id number] Admin: 11/17/20 20:15 Dose: 125 mls/hr Documented by: [id number] Potassium Chloride (K Tee / Wtr) 10 meq in 100 mls @ 100 mls/hr IV ONE ONE Stop: 11/17/20 21:29 Last Infusion: 11/17/20 21:57 Dose: 0 mls/hr Documented by: [id number] Admin: 11/17/20 20:30 Dose: 100 mls/hr Documented by: [id number] Midazolam HCl (Midazolam Hcl 1 Mg/Ml 2ml Vial) Confirm Administered Dose 2 mg .ROUTE .STK-MED ONE Stop: 11/17/20 20:23 Last Admin: 11/17/20 21:56 Dose: Not Given Documented by: [id number] Midazolam HCl (Midazolam Hcl 1 Mg/Ml 2ml Vial) Confirm Administered Dose 2 mg .ROUTE .STK-MED ONE Stop: 11/17/20 20:48 Last Admin: 11/17/20 21:56 Dose: Not Given Documented by: [id number] Nicardipine HCl (Nicardipine Hcl Inj 2.5 Mg/Ml 10 Ml Amp) Confirm Administered Dose 25 mg .ROUTE .STK-MED ONE Stop: 11/17/20 20:22 Last Admin: 11/17/20 21:55 Dose: Not Given Documented by: [id number] Nitroglycerin/Dextrose (Nitroglycerin/D5w 100mcg/Ml 20ml Syr) Confirm Administered Dose 2,000 mcg .ROUTE .STK-MED ONE Stop: 11/17/20 20:23 Last Admin: 11/17/20 21:56 Dose: Not Given Documented by: [id number] Potassium Chloride (Potassium Chloride Crtab 20 Meq Tabcr) 40 meq PO NOW STA Stop: 11/17/20 21:28 Last Admin: 11/17/20 22:07 Dose: 40 meq Documented by: [id number] Discharge Plan Visit Data Chief Complaint: Chest Pain Stated Complaint: chest pain, trouble breathing, arm tingling ED Provider: Ty Perez Discharge Problem: Acute DC Patient Disposition: Home - Self-Care Discharge Instructions Interventions: ED Discharge Assessment Last Done: 11/17/20 20:34
[2020-11-18] MEDS: NITROGLYCERIN 2% OINTMENT 30GM TUBE EXT SCH ×2 (03:47→10:03)
[2020-11-18 04:13] LABS: Basophils # (auto) 0.01 K/uL (0-0.2); Basophils % (auto) 0.2 %; Eosinophils # (auto) 0.02 K/uL (0-0.5); Eosinophils % (auto) 0.4 %; Hematocrit (blood only) 37.7 % (37-47); Immature Granulocytes # (auto) 0.01 K/uL (0.00-0.02); Immature Granulocytes % (auto) 0.2 %; Lymphocytes # (auto) 1.92 K/uL (1.2-3.4); Lymphocytes % (auto) 41.1 %; Mean Corpuscular Hemoglobin 29.3 pg (25-34); Mean Corpuscular Hgb Conc 34.5 g/dL (32-36); Mean Corpuscular Volume 85.1 fL (80-100); Mean Platelet Volume 9.8 fL (7.4-10.4); Monocytes # (auto) 0.31 K/uL (0.11-0.59); Monocytes % (auto) 6.6 %; Neutrophils % (auto) 51.5 %; Platelet Count 104 K/uL (130-400); RDW Coefficient of Variation 13.1 % (11.5-14.5); RDW Standard Deviation 40.7 fL (36.4-46.3); Red Blood Count 4.43 M/uL (4.2-5.4); White Blood Count 4.67 K/uL (4.8-10.8)
[2020-11-18 04:37] LABS: BUN Creatinine Ratio 20.1 (10-20); Blood Urea Nitrogen 15 mg/dl (7-18); Calcium 8.5 mg/dl (8.5-10.1); Carbon Dioxide 25 mmol/L (21-32); Chloride 113 mmol/L (98-107); Creatinine Clr Calc Pharmacy 92.3 ml/min; Est GFR (Non-African American) 93.1; Glucose 99 mg/dl (70-99); Magnesium 2.3 mg/dl (1.8-2.4); Potassium 3.9 mmol/L (3.5-5.1); Sodium 142 mmol/L (136-145)
[2020-11-18 04:42] LABS: Chol HDL Ratio 3; Cholesterol 204 mg/dl (0-200); HDL Cholesterol 67 mg/dl; LDL Cholesterol Direct 129 mg/dl; Triglycerides 89 mg/dl (0-150); VLDL Cholesterol 18 mg/dl
[2020-11-18 07:13] LABS: Estimated Average Glucose 105 mg/dl; Hemoglobin A1C 5.3 % (4.5-5.6)
[2020-11-18] MEDS: ASPIRIN 81 MG ECTAB PO SCH (08:28)
[2020-11-18] MEDS: METOPROLOL TARTRATE 25 MG TAB PO SCH ×2 (08:28→20:33)
--- NOTE | 2020-11-18 10:24 | XCELERA ---
[id number] [email or web address]\[id number]
[2020-11-18] MEDS ORDERED: OPTIRAY 320 125ml IV ONE (12:15)
--- NOTE | 2020-11-18 12:34 | CT Scan Report ---
CT ANGIOGRAM OF THE NECK CLINICAL HISTORY: Dilated ascending thoracic aorta seen on echocardiography. Carotid arteries assessm ent. COMPARISON STUDY: No priors. TECHNIQUE: Following the IV administration of 120 of Optiray 320, CT angiogram of the neck was perfor med from the aortic arch to the skull base. Images are reviewed in the axial, sagittal, and coronal p lanes. 3-D MIPS images are created and assessed. IV contrast was administered without complication. A ll measurements were calculated based on NASCET criteria. A dose lowering technique was utilized adh ering to the principles of ALARA. FINDINGS: Thoracic aorta: Visualized portions of the thoracic aorta are normal in caliber. The aortic arch demo nstrates standard 3-vessel anatomy. Right carotid arterial system: The right common carotid artery is widely patent, as are the right int ernal and external carotid arteries. Left carotid arterial system: The left common carotid artery is widely patent, as are the left international sales manager al and external carotid arteries. Vertebral arteries: The vertebral arteries are widely patent and codominant. Subclavian arteries: Widely patent bilaterally. Intracranial vasculature: The visualized intracranial vessels at the skull base are patent. Jugular veins: Patent bilaterally. Brain parenchyma: The visualized brain parenchyma the skull base is within normal limits. Upper chest: There are scattered calcified granulomas in the upper lobes. Upper lobe lung parenchyma is otherwise clear as imaged. There are calcified mediastinal lymph nodes. Soft tissues: The visualized pharyngeal soft tissues are normal in appearance noting angiographic pha se technique. The oropharyngeal airway appears widely patent. The salivary and thyroid glands are nor mal in appearance. No cervical lymphadenopathy is seen. Skeletal structures: The visualized calvarium at the skull base appears intact. The imaged cervical s pine is within normal limits. No lytic or blastic lesion is seen. Sinuses and mastoids: The visualized paranasal sinuses are clear. The mastoid air cells are well pneu matized. IMPRESSION: Unremarkable CT angiogram of the neck. ACT 112: Negative or not required by law. Electronically signed by: Hari Malagon M.D. 11/18/2020 12:33 PM
--- NOTE | 2020-11-18 12:49 | CT Scan Report ---
CT angio abdomen pelvis w con HISTORY: eval renal arteries, ? Fibromuscular dysplasia TECHNIQUE: Multiaxial CT images of the abdomen and pelvis were performed following the use of contras t to evaluate the major arterial structures. Maximal intensity projection images were also obtained. COMPARISON STUDY: Abdomen and pelvis CT 05/06/2020. FINDINGS: Please refer to the same day chest CT for further evaluation of the lung bases. No pneumope ritoneum. No pneumatosis. No suspicious lytic or blastic osseous lesions. Therefore hypervascular les ion seen within the liver. Dominant lesion within the right hepatic dome measures 1.5 cm. These are s imilar to the most recent study but have been slowly increasing in size. There is also a 1.3 cm hypod ense lesion within the left hepatic lobe. Subtle nodular contour to the liver consistent with cirrhos is. The spleen is mildly enlarged. The adrenal glands, pancreas, and kidneys are within normal limits . No hydronephrosis. Normal gallbladder. The bladder is within normal limits. No pelvic free fluid. P rior hysterectomy. No retroperitoneal or pelvic lymphadenopathy. There is recanalization of the umbil ical vein, unchanged. No bowel wall thickening or obstruction. Prior rectosigmoid anastomosis. The aorta and iliac arteries are normal and course and caliber. No evidence for a dissection or aneur ysm. The bilateral renal arteries are widely patent. No evidence for fibromuscular dysplasia. Of note , there are 2 right renal arteries and a single left renal artery. The celiac, superior mesenteric, a nd inferior mesenteric arteries are also patent. The right hepatic artery originates from the superio r mesenteric artery. This is considered to be a normal variant. IMPRESSION: 1. No evidence for fibromuscular dysplasia. The aorta and mesenteric vessels are normal in course and caliber. 2. A few hypervascular lesions are again noted within the liver. Given the associated cirrhosis, a fo llow-up dedicated contrast enhanced liver MRI is recommended for further characterization of these le sions. 3. Postoperative changes as described above. 4. Please refer to the same day chest CT for further evaluation of the thoracic aorta. ACT 112: Positive. There are findings on this exam that require communication between the performing entity and the patient following Patient Test Result Information Act ([place] Act 112) guidelines. Electronically signed by: Evans Mayers M.D. 11/18/2020 12:48 PM
--- NOTE | 2020-11-18 12:49 | CT Scan Report ---
CT ANGIOGRAPHY OF THE CHEST DISSECTION PROTOCOL CLINICAL HISTORY: Dilated ascending aorta on echo COMPARISON STUDY: Chest CT May 06, 2020. TECHNIQUE: Before and following the IV administration of 120 mL of Optiray-320, helical axial images of the chest were obtained. Maximal intensity projections and sagittal and coronal reformats were vi ewed on an independent 3D workstation. IV contrast was administered without complication. Automated exposure control was utilized for the study. A dose lowering technique was utilized adhering to the principles of ALARA. CT DOSE: 1836.63 mGy.cm FINDINGS: The size of the heart is normal. There is no pericardial effusion. There is no thoracic ao rtic dissection or intramural hematoma. No significant plaque is noted. The caliber of the ascending aorta at the level of the main pulmonary artery is normal, measuring 3.3 cm. The aorta at the level o f the sinuses of Valsalva is suboptimally assessed on this non gated exam but is at the upper limits of normal, measuring approximately 3.9 cm. The caliber of the thoracic aorta and descending thoracic aorta is normal. CTA of the abdomen and pelvis will be reported separately. Calcified mediastinal and right hilar lymph nodes are unchanged. These indicate previous granulomatous process. A 4 mm subpleu ral right lower lobe nodule is unchanged from earlier exams. This is benign given stability. Right lo wer lobe subpleural opacity reflects atelectasis. There is a trace right pleural effusion. The abdome n and pelvis will be reported separately. Note is made of multiple hypervascular foci within the live r, including a 1.3 cm segment 7 focus on image 213 of 336 and a 1.3 cm focus within the lateral segme nt on image 258. Enlargement of the lateral segment of the liver is noted with mild nodularity of the liver surface and recannulized paraumbilical vein. There is also splenomegaly. The findings suggest cirrhosis with portal hypertension. IMPRESSION: 1. No thoracic aortic dissection. Normal caliber thoracic aorta. Caliber of the thoracic aorta at the level the sinuses of Valsalva is at the upper limits of normal. 2. No acute process within the chest. 3. Multiple hypervascular foci within the liver. These are indeterminate and could reflect benign fla sh filling hemangiomas. However, neoplastic etiologies are also within the differential such as hepat ocellular carcinoma given suspected cirrhosis. An MRI of the liver is recommended. 4. Splenomegaly and recannulized paraumbilical vein which suggest portal hypertension. ACT 112: Positive. There are findings on this exam that require communication between the performing entity and the patient following Patient Test Result Information Act ([place] Act 112) guidelines. Electronically signed by: Kwesi Mancini M.D. 11/18/2020 12:48 PM
--- NOTE | 2020-11-18 13:30 | Electrocardiogram Report ---
Test Reason : Blood Pressure : / mmHG Vent. Rate : 079 BPM Atrial Rate : 079 BPM P-R Int : 174 ms QRS Dur : 092 ms QT Int : 402 ms P-R-T Axes : 064 -50 039 degrees QTc Int : 460 ms Normal sinus rhythm Left anterior fascicular block Abnormal ECG When compared with ECG of 17-NOV-2020 20:08, Left bundle branch block no longer present Confirmed by Tawanda Taveras ([id number]) on 11/18/2020 1:29:37 PM Referred By: REFERRED SELF Confirmed By:Tawanda Taveras
--- NOTE | 2020-11-18 14:57 | Cardiology Progress Note ---
Date of Service November 18, 2020 Assessment & Plan (1) Spontaneous dissection of coronary artery: 2. Preserved LV function with apical wall motion abnormality 3. Thrombocytopenia 4. Hypervascular liver lesions, liver nodularity c/w possible cirrhosis 5. Borderline dilated ascending aorta Patient largely chest pain-free. Troponin peaked Hemodynamically and electrically stable. Reviewed CT imaging. No clear evidence of FMD involving renal arteries, carotids. Some question of disease in distal RCA per my read. Will consider outpatient duplex. Continue aspirin, beta-herb. We will add low-dose long-acting nitrate in the setting of some possible vasospasm contribution Normal lipids, no need for statin Continue to follow platelets, previously noted and followed by hematology We will monitor on telemetry overnight. Up walking in halls today. If stable likely discharge home tomorrow. Admission and Anticipated Discharge Date Admission Date: November 17, 2020 Subjective Feeling well. Minimal residual chest discomfort. No significant shortness of breath. Up walking around room. Telemetry reviewedno events Review of Systems Review of Systems: All systems reviewed & are unremarkable except as noted in HPI & below Physical Exam Physical Exam: General: Comfortable HEENT: Sclerae anicteric, mask in place Lungs: Clear anteriorly Cardiac: Regular rate and rhythm, no murmurs. Abdomen: Soft, nontender Extremities: Warm, well perfused, no edema. Right radial artery access site with no ecchymosis, hematoma. Distal pulse and sensation intact. Skin: No rashes or lesions. Neuro: Nonfocal Psych: Alert orient x3, normal affect and mood Results & Data ([facility]) Vital Signs (Past 12 Hours) Vital Signs Temp Pulse Pulse Resp BP BP Pulse Ox 11/18/20 12:00 98.1 F 63 16 103/61 97 11/18/20 07:00 97.5 F L 61 61 18 104/68 97 11/18/20 04:00 97.7 F 58 L 15 94/54 L 11/18/20 03:00 55 L 14 94/60 L PG Care Time/CCT Total # of Minutes Spent Total Time Spent with Patient: Total time spent is greater than 50% in coordination of care (as documented) at patient's floor/unit and/or counseling patient: Coding Level of Care Code 54801 Subseq Hosp Care Lvl 3 Diagnoses Spontaneous dissection of coronary artery I25.42
--- NOTE | 2020-11-18 16:57 | Electrocardiogram Report ---
Test Reason : Blood Pressure : / mmHG Vent. Rate : 069 BPM Atrial Rate : 069 BPM P-R Int : 156 ms QRS Dur : 094 ms QT Int : 406 ms P-R-T Axes : 058 -27 056 degrees QTc Int : 435 ms Age and gender specific ECG analysis Normal sinus rhythm Incomplete right bundle branch block Acute Anterior infarct Abnormal ECG No previous ECGs available Confirmed by Tawanda Taveras ([id number]) on 11/18/2020 4:56:47 PM Referred By: REFERRED SELF Confirmed By:Tawanda Taveras
--- NOTE | 2020-11-18 16:57 | Electrocardiogram Report ---
Test Reason : Blood Pressure : / mmHG Vent. Rate : 067 BPM Atrial Rate : 067 BPM P-R Int : 160 ms QRS Dur : 096 ms QT Int : 414 ms P-R-T Axes : 059 -23 052 degrees QTc Int : 437 ms Normal sinus rhythm Acute Anterior infarct Abnormal ECG When compared with ECG of 17-NOV-2020 19:49, No significant change Confirmed by Tawanda Taveras ([id number]) on 11/18/2020 4:57:10 PM Referred By: REFERRED SELF Confirmed By:Tawanda Taveras
--- NOTE | 2020-11-18 16:58 | Electrocardiogram Report ---
Test Reason : Blood Pressure : / mmHG Vent. Rate : 098 BPM Atrial Rate : 080 BPM P-R Int : 000 ms QRS Dur : 126 ms QT Int : 414 ms P-R-T Axes : 000 -72 074 degrees QTc Int : 528 ms Accelerated Idioventricular rhythm Abnormal ECG When compared with ECG of 17-NOV-2020 19:55, Accelerated Idioventricular rhythm has replaced Sinus rhythm Confirmed by Tawanda Taveras ([id number]) on 11/18/2020 4:58:03 PM Referred By: REFERRED SELF Confirmed By:Tawanda Taveras
--- NOTE | 2020-11-18 16:59 | Electrocardiogram Report ---
Test Reason : Blood Pressure : / mmHG Vent. Rate : 072 BPM Atrial Rate : 072 BPM P-R Int : 158 ms QRS Dur : 104 ms QT Int : 398 ms P-R-T Axes : 059 -25 055 degrees QTc Int : 435 ms Normal sinus rhythm with sinus arrhythmia Acute Anterior infarct Abnormal ECG When compared with ECG of 17-NOV-2020 19:57, Sinus rhythm has replaced Wide QRS rhythm Confirmed by Tawanda Taveras ([id number]) on 11/18/2020 4:59:09 PM Referred By: REFERRED SELF Confirmed By:Tawanda Taveras
--- NOTE | 2020-11-18 17:01 | Electrocardiogram Report ---
Test Reason : Blood Pressure : / mmHG Vent. Rate : 090 BPM Atrial Rate : 090 BPM P-R Int : 162 ms QRS Dur : 134 ms QT Int : 428 ms P-R-T Axes : 075 -75 071 degrees QTc Int : 523 ms Accelerated Idioventricular rhythm Abnormal ECG When compared with ECG of 17-NOV-2020 20:08, Accelerated Idioventricular rhythm has replaced Sinus rhythm Confirmed by Tawanda Taveras ([id number]) on 11/18/2020 5:00:51 PM Referred By: REFERRED SELF Confirmed By:Tawanda Taveras
[2020-11-18] MEDS ORDERED: traZODone HCL 50 MG TAB PO SCH (21:00)
[2020-11-19 05:12] LABS: Basophils # (auto) 0.01 K/uL (0-0.2); Basophils % (auto) 0.2 %; Eosinophils # (auto) 0.07 K/uL (0-0.5); Eosinophils % (auto) 1.6 %; Hematocrit (blood only) 39.6 % (37-47); Hemoglobin 13.5 g/dL (12.0-16.0); Lymphocytes # (auto) 1.88 K/uL (1.2-3.4); Lymphocytes % (auto) 42.2 %; Mean Corpuscular Hemoglobin 29.3 pg (25-34); Mean Corpuscular Hgb Conc 34.1 g/dL (32-36); Mean Corpuscular Volume 86.1 fL (80-100); Mean Platelet Volume 9.9 fL (7.4-10.4); Monocytes # (auto) 0.45 K/uL (0.11-0.59); Monocytes % (auto) 10.1 %; Neutrophils # (auto) 2.05 K/uL (1.4-6.5); Neutrophils % (auto) 45.9 %; Platelet Count 107 K/uL (130-400); RDW Coefficient of Variation 13.2 % (11.5-14.5); RDW Standard Deviation 41.1 fL (36.4-46.3); White Blood Count 4.46 K/uL (4.8-10.8)
[2020-11-19 05:38] LABS: RBC Morphology Unremarkable
[2020-11-19 05:41] LABS: BUN Creatinine Ratio 17.1 (10-20); Calcium 8.7 mg/dl (8.5-10.1); Creatinine Clr Calc Pharmacy 83.3 ml/min; Est GFR (African American) 95.4; Est GFR (Non-African American) 82.3; Potassium 3.8 mmol/L (3.5-5.1)
[2020-11-19] MEDS ORDERED: ISOSORBIDE MONO EXTENDED REL 30 MG TABCR PO SCH (09:00)
[2020-11-19] MEDS: METOPROLOL TARTRATE 25 MG TAB PO SCH (09:27)
[2020-11-19] MEDS: ASPIRIN 81 MG ECTAB PO SCH (09:27)
--- NOTE | 2020-11-19 09:35 | Discharge Summary ---
Date of Service November 19, 2020 Admission HPI Per Admitting Provider 50-year-old woman here with acute chest pain and ECG concerning for acute [place]. Patient seen emergently in the ED after heart alert activated on arrival. No prior cardiac history. Cardiac risk factors include family history of coronary artery disease involving mother, maternal grandmother. Other medical issues include migraine headaches and history of colon cancer post curative resection. Chest pain began approximately 7 PM, around 40 minutes prior to arrival. States was lifting a heavy object when developed severe chest pain radiating to her back with associated shortness of breath. Pain at its worst 10 out of 10 on arrival. Denies similar symptoms in the past. Chest pain currently down to 2 out of 10 after IV fluids, aspirin. Blood pressure in the 90s to 100s. Serial ECGs have shown anterior ST elevations. Specialty Data Cardiology Cardiac catheterization 10/2020: 1. 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 2. Remaining coronary arteries angiographically normal without atherosclerotic disease 3. Normal intracardiac filling pressure Echocardiogram 11/18/2020: LVEF 55 to 60%, apex severe hypokinesis to akinesis, mild mid anteroseptal, septal hypokinesis. Borderline dilated ascending aorta (3.9 cm) Discharge Data Consultations 11/17/20 21:26 Consult Cardiac Rehabilitation Routine Consult Case Management - Discharge Planning Routine Procedures Performed Operation Date: 11/17/20 20:30 Actual Procedures p Cath, Left with Cors and Vent - Keny Tadeo MD p Cardiac Heart Alert - Keny Tadeo MD s Cineradiography w/Routine Exam - Keny Tadeo MD Hospital Course (1) Spontaneous dissection of coronary artery: Patient presented with acute chest pain after heavy lifting. Initial ECG showed anterior ST elevations and underwent emergent cardiac catheterization whi ch revealed diffuse mid to distal LAD narrowing most consistent with spontaneous coronary artery dissection. No other evidence of atherosclerotic disease. At time of catheterization patient had CORTNEY-3 flow and was largely chest pain-free and decision made to manage dissection medically. Patient started on long- acting nitrate, beta-herb. Minimal chest pain gradually resolved. Troponin peaked at 5. Echocardiogram showed preserved LV function with apical wall motion abnormality, ascending aorta also borderline dilated. Electrically stable on telemetry. Due to concern for possible FMD predisposing to coronary dissection underwent CTA neck/chest abdomen pelvis. Carotids, renal arteries unremarkable. No significant aortic aneurysm. On CTA was noted to have a few hypervascular lesions in her liver. Lesion slightly larger than previously noted on scan in April 2020. Dedicated liver MRI recommended. Patient also noted to have mild thrombocytopenia during admission with platelets down to low 100s. This is not a new issue for patient. Plan for patient to follow-up with hematology/oncology in November regarding thrombocytopenia and liver lesions. Patient discharged on new metoprolol, Imdur and aspirin. Follow-up with cardiology in 2 weeks. Discharge Instructions Home Medications albuterol sulfate 2 puff INHALATION Q6H PRN 11/17/20 [History Confirmed 11/17/20] azelastine 1 spray INTRANASAL DAILY 11/17/20 [History Confirmed 11/17/20] naproxen [Naprosyn] 500 mg PO BID PRN 11/17/20 [History Confirmed 11/17/20] trazodone 50 mg PO HS 11/17/20 [History Confirmed 11/17/20] aspirin 81 mg PO QAM #30 tab 11/19/20 [Rx] isosorbide mononitrate 30 mg PO QAM #30 tab 11/19/20 [Rx] metoprolol succinate [Toprol XL] 25 mg PO DAILY #30 tab 11/19/20 [Rx] nitroglycerin [Nitrostat] 0.4 mg SUBLINGUAL PRN PRN #20 tab 11/19/20 [Rx] Coding Level of Care Code D/C Day Management <30 mins Diagnoses Spontaneous dissection of coronary artery I25.42
== END 2020-11-19 11:29 | disposition home or self-care (01) | DRG 287 ==
LOC: ED 19:40 → CC 20:34 → 1E 21:26

== ENCOUNTER 2023-05-14 21:17 | Observation (INO) ==
[2023-05-14] MEDS ORDERED: dexAMETHasone**PF** 10 MG/ML VIAL IV ONE (21:46)
[2023-05-14 22:44] LABS: Basophils # (auto) 0.01 K/uL (0-0.2); Basophils % (auto) 0.2 %; Eosinophils # (auto) 0.04 K/uL (0-0.50); Eosinophils % (auto) 0.8 %; Hematocrit (blood only) 32.9 % (37.0-47.0); Hemoglobin 11.4 g/dl (12.0-16.0); Immature Granulocytes # (auto) 0.01 K/uL (0.01-0.20); Immature Granulocytes % (auto) 0.2 %; Lymphocytes # (auto) 1.38 K/uL (1.2-3.4); Mean Corpuscular Hemoglobin 28.6 pg (25.0-34.0); Mean Corpuscular Hgb Conc 34.7 g/dL (32.0-36.0); Mean Corpuscular Volume 82.5 fL (80.0-100.0); Mean Platelet Volume 9.8 fL (9.4-12.4); Monocytes # (auto) 0.54 K/uL (0.11-0.59); Neutrophils # (auto) 2.94 K/uL (1.40-6.50); Neutrophils % (auto) 59.8 %; Platelet Count 103 K/uL (130-400); RDW Coefficient of Variation 12.8 % (11.5-14.5); RDW Standard Deviation 38.8 fL (36.4-46.3); Red Blood Count 3.99 M/uL (4.20-5.40); White Blood Count 4.92 K/ul (4.8-10.8)
[2023-05-14 22:52] LABS: Albumin Globulin Ratio 1.4 (0.9-2); Albumin Level 3.6 gm/dl (3.4-5.0); Bilirubin,Total 0.4 mg/dl (0.2-1.0); Calcium 8.8 mg/dl (8.6-10.3); Est GFR (African American) 104.7 ml/min; Est GFR (Non-African American) 90.4 ml/min; Globulin 2.6 gm/dl (2.5-4.0); Potassium 3.7 mmol/L (3.5-5.1); Total Protein 6.2 gm/dl (6.0-8.3)
[2023-05-14] MEDS ORDERED: OPTIRAY 320 100ml IV ONE (23:23)
--- NOTE | 2023-05-15 00:48 | CT Scan Report ---
Exam(s): CT NECK With Contrast IV Amt: 90ml Optiray 320 EXAM: CT Neck With Intravenous Contrast CLINICAL HISTORY: Reason for exam: right sided throat/neck pain, tonsillitis. TECHNIQUE: Axial computed tomography images of the neck with intravenous contrast. CTDI is 17.93 mGy and DLP is 552.76 mGy-cm. Automated exposure control was utilized for the study. A dose lowering technique was utilized adhering to the principles of ALARA. CONTRAST: Patient received 90ml Optiray 320 of IV contrast COMPARISON: No relevant prior studies available. FINDINGS: Oropharynx: 0.7 cm low density in the right palatine tonsil best seen on series 2 image 47 concerning for a tonsillar abscess. Hypopharynx: Unremarkable. Larynx: Unremarkable. Normal epiglottis. Trachea: Unremarkable. Retropharyngeal space: Unremarkable. Submandibular/parotid glands: Unremarkable. Glands are normal in size. Thyroid: Unremarkable. No enlarged or calcified nodules. Bones/joints: No acute fracture. Soft tissues: Unremarkable. Vasculature: No acute findings. Lymph nodes: Unremarkable. No lymphadenopathy. Lung apices: Unremarkable as visualized. IMPRESSION: 0.7 cm low density in the right palatine tonsil best seen on series 2 image 47 concerning for a tonsillar abscess. Electronically signed by: Tucker Campa M.D. 05/15/23 00:47 AM
[2023-05-15] MEDS ORDERED: CLINDAMYCIN/D5W 600 MG/50 ML BAG IV ONE (01:19)
--- NOTE | 2023-05-15 02:02 | History & Physical Report ---
Date of Service May 15, 2023 Assessment & Plan (1) Tonsillar abscess: Plan: 52yo female with sore throat x 1 week, acutely worsening over the last 4 days with increase in right sided throat pain and swelling. Patient has been on Augmentin x 3 days and has been taking Tylenol and Ibuprofen with minimal relief. Clare NEGATIVE. Patient was not checked for Strep throat - has been on Augmentin. Imaging as above with tonsillar abscess. Non-toxic in appearance. No airway obstruction. Dexamethasone given. -Observation to medical -Continue Clindamycin -Tylenol and Ibuprofen as needed -ENT consultation appreciated (2) Anxiety and depression: Plan: Chronic. Well controlled with Sertraline -Continue Sertraline History of Present Illness Chief Complaint: right throat pain Primary Care Provider: KIERAN Zuniga Odalis Oliva is a pleasant 52yo female with history of colon cancer in 2014 s/p resection, acute anterior HI secondary to spontaneous dissection fo coronary artery in 2019 and anxiety presenting with sore throat. Patient developed a sore throat 1 week ago which persisted. On 05/11/23 she noted worsening pain and swelling of the right side of her neck with pain into her ear, neck and face. She was prescribed Augmentin which she has been taking as directed. She has also been taking Tylenol and Ibuprofen with minimal relief. Found to have right tonsillar abscess. In the ER she is afebrile, HD stable, NAD ER Course: Dexamethasone 10mg IV Clindamycin 600mg IV Allergies Allergy/AdvReac Type Severity Reaction Status Date / Time Cyanoacrylates Allergy Intermediate DERMABOND Verified 05/14/23 22:11 edema at site sumatriptan Allergy Intermediate Hot Verified 05/14/23 22:11 Sensations, Skin "Prickly" feeling codeine AdvReac Severe Migraine Verified 05/14/23 22:11 fentanyl AdvReac Severe Migraine Verified 05/14/23 22:11 hydrocodone AdvReac Severe Migraine Verified 05/14/23 22:11 hydromorphone [From Dilaudid] AdvReac Severe Migraine Verified 05/14/23 22:11 isosorbide AdvReac Severe Migraine Verified 05/14/23 22:11 morphine AdvReac Unknown migraine Verified 05/14/23 22:11 Home Medications Medication Instructions Recorded Confirmed Type albuterol sulfate 90 mcg/actuation 2 puff inhalation Q6H PRN 11/17/20 05/14/23 History aerosol inhaler Shortness Of Breath Or Wheezing naproxen 500 mg tablet (Naprosyn) 500 mg PO BID PRN Pain 11/17/20 05/14/23 History aspirin 81 mg tablet,delayed 81 mg PO QAM #30 tabs 11/19/20 05/14/23 Rx release nitroglycerin 0.4 mg sublingual 0.4 mg sublingual PRN PRN chest 03/15/21 05/14/23 Rx tablet (Nitrostat) pain #20 tabs azelastine 137 mcg (0.1 %) nasal 1 spray intranasal DAILY PRN 01/13/22 05/14/23 History spray aerosol Congestion atorvastatin 10 mg tablet 5 mg PO DAILY 01/17/23 05/14/23 History acetaminophen 325 mg tablet 650 mg PO DIRECTED PRN 05/14/23 05/14/23 History (Tylenol) PAIN/FEVER amoxicillin 875 mg-potassium 1 tab PO BID 05/14/23 05/14/23 History clavulanate 125 mg tablet fluconazole 150 mg tablet 150 mg PO DIRECTED PRN NEEDED 05/14/23 05/14/23 History ibuprofen 200 mg tablet 400 mg PO DIRECTED PRN 05/14/23 05/14/23 History PAIN/FEVER sertraline 50 mg tablet 50 mg PO DAILY 05/14/23 05/14/23 History Past Med/Surg History Medical History (Updated 05/15/23 @ 02:18 by Felicitas Gordon DO) Anxiety and depression History of colon cancer SURGERY AND CHEMO History of COVID-14 JUNE 2020 (MILD SYMPTOMS-RESOLVED NOW) Hx of chest pain Spontaneous coronary dissection-FOLLOWS WITH GOERGE Migraine Post traumatic stress disorder Teeth grinding WEARS MOUTH GUARD AT NIGHT Surgical History Family history of reaction to anesthesia MOTHER AND SISTER>SLOW TO WAKE UP AND NAUSE History of cardiac cath NO STENTS> History of colon resection History of colonoscopy History of hysterectomy 08/26/2015 [place] teeth removed Family History Mother Cancer Diabetes Heart disease Hypertension Sarcoma Father Epilepsy Other No family history of adverse response to anesthesia No family history of bleeding disorder Social History (Reviewed 05/15/23 @ 02:[address] Irizarry Smoking Status: Never smoker Second Hand Exposure: No; Do You Dip or Chew Tobacco: No; Hx Alcohol Use: No Preferred Language: Turkmen Communication Ability: Effective Systems Specialist Required: No Beliefs That Will Affect Care: None Current Living Situation: Alone current occupation: Purchasing at [employer] Feels Safe at Home: Yes Assistive Devices: None Review of Systems Review of Systems: All systems reviewed & are unremarkable except as noted in HPI & below Physical Exam Physical Exam: General: patient resting comfortably, NAD, non-toxic in appearance, AA&O x 4 Skin: warm, dry, intact, no rashes or lesions HEENT: NC/AT, PERRL, EOMI, anicteric sclera, conjunctiva without injection, external ear normal to inspection and nontender, nares patent, moist mucus membranes, dentition intact, enlargement of right tonsil with purulent discharge and crypts, neck supple, tenderness with palpation of right anterior cervical and submental lymph nodes, trachea midline, no thyromegaly, no JVD Heart: +S1/S2, regular, no m/r/g Lungs: equal air entry bilaterally, no rales/rhonchi/wheezes Abd: +BS, soft, NT/ND, no masses/organomegaly/ascites Ext: warm, 2+ pulses in UE/LE bilaterally, no clubbing/cyanosis or edema Neuro: nonfocal, patient AA&O x 4, speech intact, no facial droop, moving all extremities on command with equal strength 5/5 Results & Data Results & Data Vital Signs (Past 12 Hours) Vital Signs Temp Pulse Pulse Resp BP BP Pulse Ox 05/15/23 01:30 64 15 110/70 94 05/15/23 01:00 68 17 108/67 93 05/15/23 00:00 68 14 104/70 94 05/15/23 00:30 71 16 112/69 93 05/14/23 23:27 69 17 109/70 94 05/14/23 21:21 36.9 C 78 18 120/77 97 O2 Del Method 05/15/23 01:30 Room Air 05/15/23 01:00 Room Air 05/15/23 00:00 Room Air 05/15/23 00:30 Room Air 05/14/23 23:27 Room Air 05/14/23 21:21 Room Air Laboratory Results Laboratory Results WBC 4.92 K/ul (4.8-10.8) 05/14/23 22:09 RBC 3.99 M/uL (4.20-5.40) L 05/14/23 22:09 Hgb 11.4 g/dl (12.0-16.0) L 05/14/23 22:09 Hct 32.9 % (37.0-47.0) L 05/14/23 22:09 MCV 82.5 fL (80.0-100.0) 05/14/23 22:09 MCH 28.6 pg (25.0-34.0) 05/14/23 22:09 MCHC 34.7 g/dL (32.0-36.0) 05/14/23 22:09 RDW Std Deviation 38.8 fL (36.4-46.3) 05/14/23 22:09 RDW Coeff of Jennifer 12.8 % (11.5-14.5) 05/14/23 22:09 Plt Count 103 K/uL (130-400) L 05/14/23 22:09 MPV 9.8 fL (9.4-12.4) 05/14/23 22:09 Immature Gran % (Auto) 0.2 % 05/14/23 22:09 Neut % (Auto) 59.8 % 05/14/23 22:09 Lymph % (Auto) 28.0 % 05/14/23 22:09 Clare % (Auto) 11.0 % 05/14/23 22:09 Eos % (Auto) 0.8 % 05/14/23 22:09 Baso % (Auto) 0.2 % 05/14/23 22:09 Neut # (Auto) 2.94 K/uL (1.40-6.50) 05/14/23 22:09 Lymph # (Auto) 1.38 K/uL (1.2-3.4) 05/14/23 22:09 Clare # (Auto) 0.54 K/uL (0.11-0.59) 05/14/23 22:09 Eos # (Auto) 0.04 K/uL (0-0.50) 05/14/23 22:09 Baso # (Auto) 0.01 K/uL (0-0.2) 05/14/23 22:09 Immature Gran # (Auto) 0.01 K/uL (0.01-0.20) 05/14/23 22:09 Sodium 137 mmol/L (136-145) 05/14/23 22:09 Potassium 3.7 mmol/L (3.5-5.1) 05/14/23 22:09 Chloride 104 mmol/L (98-107) 05/14/23 22:09 Carbon Dioxide 26 mmol/L (21-32) 05/14/23 22:09 Anion Gap 7 (3-11) 05/14/23 22:09 BUN 15 mg/dl (6-23) 05/14/23 22:09 Creatinine 0.75 mg/dl (0.6-1.2) 05/14/23 22:09 Est Cr Clr Drug Dosing 89.0 ml/min 05/14/23 22:09 Est GFR ( Amer) 104.7 ml/min 05/14/23 22:09 Est GFR (Non-Af Amer) 90.4 ml/min 05/14/23 22:09 BUN/Creatinine Ratio 20.0 (10-20) 05/14/23 22:09 Glucose 95 mg/dl (70-99(Fasting)) 05/14/23 22:09 Calcium 8.8 mg/dl (8.6-10.3) 05/14/23 22:09 Total Bilirubin 0.4 mg/dl (0.2-1.0) 05/14/23 22:09 AST 21 U/L (13-39) 05/14/23 22:09 ALT 20 U/L (7-52) 05/14/23 22:09 Alkaline Phosphatase 107 U/L (34-104) H 05/14/23 22:09 Total Protein 6.2 gm/dl (6.0-8.3) 05/14/23 22:09 Albumin 3.6 gm/dl (3.4-5.0) 05/14/23 22:09 Globulin 2.6 gm/dl (2.5-4.0) 05/14/23 22:09 Albumin/Globulin Ratio 1.4 (0.9-2) 05/14/23 22:09 Monoscreen Negative (Negative) 05/14/23 22:09 SARS-CoV-2, RNA, NAAT NEGATIVE (NEGATIVE) 05/15/23 01:47 Impressions Soft Tissue Neck CT 05/14/23 21:45 Exam(s): CT NECK With Contrast IV Amt: 90ml Optiray 320 EXAM: CT Neck With Intravenous Contrast CLINICAL HISTORY: Reason for exam: right sided throat/neck pain, tonsillitis. TECHNIQUE: Axial computed tomography images of the neck with intravenous contrast. CTDI is 17.93 mGy and DLP is 552.76 mGy-cm. Automated exposure control was utilized for the study. A dose lowering technique was utilized adhering to the principles of ALARA. CONTRAST: Patient received 90ml Optiray 320 of IV contrast COMPARISON: No relevant prior studies available. FINDINGS: Oropharynx: 0.7 cm low density in the right palatine tonsil best seen on series 2 image 47 concerning for a tonsillar abscess. Hypopharynx: Unremarkable. Larynx: Unremarkable. Normal epiglottis. Trachea: Unremarkable. Retropharyngeal space: Unremarkable. Submandibular/parotid glands: Unremarkable. Glands are normal in size. Thyroid: Unremarkable. No enlarged or calcified nodules. Bones/joints: No acute fracture. Soft tissues: Unremarkable. Vasculature: No acute findings. Lymph nodes: Unremarkable. No lymphadenopathy. Lung apices: Unremarkable as visualized. IMPRESSION: 0.7 cm low density in the right palatine tonsil best seen on series 2 image 47 concerning for a tonsillar abscess. Electronically signed by: Tucker Campa M.D. 05/15/23 00:47 AM PG Care Time/CCT Total # of Minutes Spent Total Time Spent with Patient: Total time spent is greater than 50% in coordination of care (as documented) at patient's floor/unit and/or counseling patient: Coding Level of Care Code 20603 INT INP/OBS CARE 2/55MIN Diagnoses Tonsillar abscess J36 Anxiety and depression F41.9; F32.9
[2023-05-15] MEDS ORDERED: ACETAMINOPHEN 325 MG TAB PO PRN (03:22)
[2023-05-15] MEDS ORDERED: ALBUTEROL HFA 8 GM INHALER INH PRN (03:22)
[2023-05-15] MEDS ORDERED: IBUPROFEN 200 MG TAB PO PRN (03:22)
--- NOTE | 2023-05-15 04:11 | Emergency Department Note ---
ED Provider Note History of Present Illness Chief Complaint: Throat Pain Stated Complaint: RT TONSIL SWOLLEN, NECK/EAR PAIN Time Seen by Provider: 05/14/23 21:29 Source: patient Mode of arrival: ambulatory Limitations: no limitations This patient is a 52-year-old female who presents to the emergency department for evaluation of sore throat. Patient states symptoms started 6 days ago. She was seen 3 days ago and started on Augmentin but states symptoms have been worsening. She has pain in the throat with radiation down the neck and into the ear. She has difficulty swallowing. She denies any fevers or other symptoms. Home Medications Medication Instructions Recorded Confirmed Type albuterol sulfate 90 mcg/actuation 2 puff inhalation Q6H PRN 11/17/20 05/14/23 History aerosol inhaler Shortness Of Breath Or Wheezing naproxen 500 mg tablet (Naprosyn) 500 mg PO BID PRN Pain 11/17/20 05/14/23 History aspirin 81 mg tablet,delayed 81 mg PO QAM #30 tabs 11/19/20 05/14/23 Rx release nitroglycerin 0.4 mg sublingual 0.4 mg sublingual PRN PRN chest 03/15/21 05/14/23 Rx tablet (Nitrostat) pain #20 tabs azelastine 137 mcg (0.1 %) nasal 1 spray intranasal DAILY PRN 01/13/22 05/14/23 History spray aerosol Congestion atorvastatin 10 mg tablet 5 mg PO DAILY 01/17/23 05/14/23 History acetaminophen 325 mg tablet 650 mg PO DIRECTED PRN 05/14/23 05/14/23 History (Tylenol) PAIN/FEVER amoxicillin 875 mg-potassium 1 tab PO BID 05/14/23 05/14/23 History clavulanate 125 mg tablet fluconazole 150 mg tablet 150 mg PO DIRECTED PRN NEEDED 05/14/23 05/14/23 History ibuprofen 200 mg tablet 400 mg PO DIRECTED PRN 05/14/23 05/14/23 History PAIN/FEVER sertraline 50 mg tablet 50 mg PO DAILY 05/14/23 05/14/23 History Allergies Allergy/AdvReac Type Severity Reaction Status Date / Time Cyanoacrylates Allergy Intermediate DERMABOND Verified 05/14/23 22:11 edema at site sumatriptan Allergy Intermediate Hot Verified 05/14/23 22:11 Sensations, Skin "Prickly" feeling codeine AdvReac Severe Migraine Verified 05/14/23 22:11 fentanyl AdvReac Severe Migraine Verified 05/14/23 22:11 hydrocodone AdvReac Severe Migraine Verified 05/14/23 22:11 hydromorphone [From Dilaudid] AdvReac Severe Migraine Verified 05/14/23 22:11 isosorbide AdvReac Severe Migraine Verified 05/14/23 22:11 morphine AdvReac Unknown migraine Verified 05/14/23 22:11 Past Med/Surg History Medical History Anxiety and depression History of colon cancer SURGERY AND CHEMO History of COVID-14 JUNE 2020 (MILD SYMPTOMS-RESOLVED NOW) Hx of chest pain Spontaneous coronary dissection-FOLLOWS WITH GEORGE Migraine Post traumatic stress disorder Teeth grinding WEARS MOUTH GUARD AT NIGHT Surgical History Family history of reaction to anesthesia MOTHER AND SISTER>SLOW TO WAKE UP AND NAUSE History of cardiac cath NO STENTS> History of colon resection History of colonoscopy History of hysterectomy 08/26/2015 [place] teeth removed Family History Mother Cancer Diabetes Heart disease Hypertension Sarcoma Father Epilepsy Other No family history of adverse response to anesthesia No family history of bleeding disorder Social History Smoking Status: Never smoker Second Hand Exposure: No; Do You Dip or Chew Tobacco: No; Hx Alcohol Use: No Hx Substance Use: No Preferred Language: Pakistani Communication Ability: Effective Microsoft Dynamics Manager Architect Required: No Beliefs That Will Affect Care: None Current Living Situation: Alone current occupation: Purchasing at [employer] Other Information That Helps Us Care for You: No Feels Safe at Home: Yes Safety Concerns: Feels Safe At This Time Assistive Devices: None Physical Exam Vital Signs Vital Signs - 24 hr 05/14/23 21:21 05/14/23 23:27 05/15/23 00:30 Temperature 36.9 C Temperature Source Temporal Artery Scan Pulse Rate 78 Pulse Rate [Finger] 69 71 Respiratory Rate 18 17 16 Respiratory Effort / Characteristics Non-Labored Non-Labored Non-Labored Respiratory Depth Normal Normal Normal Respiratory Pattern Regular Regular Blood Pressure 120/77 Blood Pressure [Right Arm] 109/70 112/69 Blood Pressure Mean 91 Blood Pressure Mean [Right Arm] 83 83 Pulse Oximetry 97 94 93 Oxygen Delivery Method Room Air Room Air Room Air Sepsis Recent Fever Within 48 Hours No Sepsis New/Unexplained Change in Mental Status No Sepsis Action Taken by Nursing No Action Required 05/15/23 00:00 05/15/23 01:00 05/15/23 01:30 Temperature Temperature Source Pulse Rate Pulse Rate [Finger] 68 68 64 Respiratory Rate 14 17 15 Respiratory Effort / Characteristics Non-Labored Non-Labored Non-Labored Respiratory Depth Normal Normal Normal Respiratory Pattern Regular Regular Regular Blood Pressure Blood Pressure [Right Arm] 104/70 108/67 110/70 Blood Pressure Mean Blood Pressure Mean [Right Arm] 81 80 83 Pulse Oximetry 94 93 94 Oxygen Delivery Method Room Air Room Air Room Air Sepsis Recent Fever Within 48 Hours Sepsis New/Unexplained Change in Mental Status Sepsis Action Taken by Nursing VITALS: Vitals are noted on the nurse's note and reviewed by myself. GENERAL: This is a 52-year-old female, in no acute distress, well-developed well-nourished. SKIN: The skin was without rashes. EARS: External auditory canals clear, tympanic membranes pearly martinez without erythema or effusion bilaterally. EYES: Pupils equal round and reactive to light and accommodation. MOUTH: Mucous membranes moist. There is right-sided asymmetric tonsillar edema. No uvular deviation. Airway patent. NECK: Supple without nuchal rigidity. No lymphadenopathy. HEART: Regular rate and rhythm without murmurs gallops or rubs. LUNGS: Clear to auscultation bilaterally without wheezes, rales or rhonchi. NEURO: Patient was alert and oriented to person place and time. Course Administered Medications Discontinued Medications Dexamethasone Sodium Phosphate (DexamethasonePf 10 Mg/Ml Vial) 10 mg IV NOW ONE Stop: 05/14/23 21:47 Last Admin: 05/14/23 22:18 Dose: 10 mg Documented By: MAHOGANY Clindamycin Phosphate (Cleocin/D5w) 600 mg in 50 mls @ 100 mls/hr IV NOW ONE Stop: 05/15/23 01:48 Last Infusion: 05/15/23 02:18 Dose: 0 mls/hr Documented By: Admin: 05/15/23 01:40 Dose: 100 mls/hr Documented By: ARMAAN Ioversol (Optiray 320 100ml) 90 ml IV ONCE ONE Stop: 05/14/23 23:24 Last Admin: 05/14/23 23:24 Dose: 90 ml Documented By: ZACH Medical Decision Making Differential Diagnosis Viral syndrome, tonsillitis, streptococcal pharyngitis, mononucleosis, peritonsillar abscess, retropharyngeal abscess, otitis, pneumonia, influenza, as well as other pathologies. Home Medications was personally reviewed by me Laboratory Data Attestation: I reviewed the patient's lab results. 05/14/23 22:09 05/14/23 22:09 Lab Results 05/14/23 05/14/23 05/14/23 Range/Units 22:09 22:09 22:09 WBC 4.92 (4.8-10.8) K/ul RBC 3.99 L (4.20-5.40) M/uL Hgb 11.4 L (12.0-16.0) g/dl Hct 32.9 L (37.0-47.0) % MCV 82.5 (80.0-100.0) fL MCH 28.6 (25.0-34.0) pg MCHC 34.7 (32.0-36.0) g/dL RDW Std Deviation 38.8 (36.4-46.3) fL RDW Coeff of Jennifer 12.8 (11.5-14.5) % Plt Count 103 L (130-400) K/uL MPV 9.8 (9.4-12.4) fL Immature Gran % (Auto) 0.2 % Neut % (Auto) 59.8 % Lymph % (Auto) 28.0 % [place] % (Auto) 11.0 % Eos % (Auto) 0.8 % Baso % (Auto) 0.2 % Neut # (Auto) 2.94 (1.40-6.50) K/uL Lymph # (Auto) 1.38 (1.2-3.4) K/uL [place] # (Auto) 0.54 (0.11-0.59) K/uL Eos # (Auto) 0.04 (0-0.50) K/uL Baso # (Auto) 0.01 (0-0.2) K/uL Immature Gran # (Auto) 0.01 (0.01-0.20) K/uL Sodium 137 (136-145) mmol/L Potassium 3.7 (3.5-5.1) mmol/L Chloride 104 (98-107) mmol/L Carbon Dioxide 26 (21-32) mmol/L Anion Gap 7 (3-11) BUN 15 (6-23) mg/dl Creatinine 0.75 (0.6-1.2) mg/dl Est Cr Clr Drug Dosing 89.0 ml/min Est GFR ( Amer) 104.7 ml/min Est GFR (Non-Af Amer) 90.4 ml/min BUN/Creatinine Ratio 20.0 (10-20) Glucose 95 (70-99(Fasting)) mg/dl Calcium 8.8 (8.6-10.3) mg/dl Total Bilirubin 0.4 (0.2-1.0) mg/dl AST 21 (13-39) U/L ALT 20 (7-52) U/L Alkaline Phosphatase 107 H (34-104) U/L Total Protein 6.2 (6.0-8.3) gm/dl Albumin 3.6 (3.4-5.0) gm/dl Globulin 2.6 (2.5-4.0) gm/dl Albumin/Globulin Ratio 1.4 (0.9-2) Monoscreen Negative (Negative) SARS-CoV-2, RNA, NAAT (NEGATIVE) 05/15/23 Range/Units 01:47 WBC (4.8-10.8) K/ul RBC (4.20-5.40) M/uL Hgb (12.0-16.0) g/dl Hct (37.0-47.0) % MCV (80.0-100.0) fL MCH (25.0-34.0) pg MCHC (32.0-36.0) g/dL RDW Std Deviation (36.4-46.3) fL RDW Coeff of Jennifer (11.5-14.5) % Plt Count (130-400) K/uL MPV (9.4-12.4) fL Immature Gran % (Auto) % Neut % (Auto) % Lymph % (Auto) % [place] % (Auto) % Eos % (Auto) % Baso % (Auto) % Neut # (Auto) (1.40-6.50) K/uL Lymph # (Auto) (1.2-3.4) K/uL [place] # (Auto) (0.11-0.59) K/uL Eos # (Auto) (0-0.50) K/uL Baso # (Auto) (0-0.2) K/uL Immature Gran # (Auto) (0.01-0.20) K/uL Sodium (136-145) mmol/L Potassium (3.5-5.1) mmol/L Chloride (98-107) mmol/L Carbon Dioxide (21-32) mmol/L Anion Gap (3-11) BUN (6-23) mg/dl Creatinine (0.6-1.2) mg/dl Est Cr Clr Drug Dosing ml/min Est GFR ( Amer) ml/min Est GFR (Non-Af Amer) ml/min BUN/Creatinine Ratio (10-20) Glucose (70-99(Fasting)) mg/dl Calcium (8.6-10.3) mg/dl Total Bilirubin (0.2-1.0) mg/dl AST (13-39) U/L ALT (7-52) U/L Alkaline Phosphatase (34-104) U/L Total Protein (6.0-8.3) gm/dl Albumin (3.4-5.0) gm/dl Globulin (2.5-4.0) gm/dl Albumin/Globulin Ratio (0.9-2) Monoscreen (Negative) SARS-CoV-2, RNA, NAAT NEGATIVE (NEGATIVE) Imaging Data Attestation: I personally reviewed and interpreted this imaging study as follows: Radiologist's Impression: Soft Tissue Neck CT 05/14/23 21:45 Exam(s): CT NECK With Contrast IV Amt: 90ml Optiray 320 EXAM: CT Neck With Intravenous Contrast CLINICAL HISTORY: Reason for exam: right sided throat/neck pain, tonsillitis. TECHNIQUE: Axial computed tomography images of the neck with intravenous contrast. CTDI is 17.93 mGy and DLP is 552.76 mGy-cm. Automated exposure control was utilized for the study. A dose lowering technique was utilized adhering to the principles of ALARA. CONTRAST: Patient received 90ml Optiray 320 of IV contrast COMPARISON: No relevant prior studies available. FINDINGS: Oropharynx: 0.7 cm low density in the right palatine tonsil best seen on series 2 image 47 concerning for a tonsillar abscess. Hypopharynx: Unremarkable. Larynx: Unremarkable. Normal epiglottis. Trachea: Unremarkable. Retropharyngeal space: Unremarkable. Submandibular/parotid glands: Unremarkable. Glands are normal in size. Thyroid: Unremarkable. No enlarged or calcified nodules. Bones/joints: No acute fracture. Soft tissues: Unremarkable. Vasculature: No acute findings. Lymph nodes: Unremarkable. No lymphadenopathy. Lung apices: Unremarkable as visualized. IMPRESSION: 0.7 cm low density in the right palatine tonsil best seen on series 2 image 47 concerning for a tonsillar abscess. Electronically signed by: Tucker Campa M.D. 05/15/23 00:47 AM MDM Narrative The patient is a 52-year-old female who presents today complaining of sore throat which is worsening on Augmentin. Labs revealed no leukocytosis or concerning electrolyte abnormalities. Patient is mildly anemic. CT of the neck was performed and showed a very small tonsillar abscess. Do not feel this would be amenable to drainage. I did consult ENT, Dr. Maradiaga, who recommended admission for IV antibiotics. Patient had been given IV clindamycin and dexamethasone. She was agreeable with the plan. Case was then discussed with the [facility] hospitalist, Dr. Gordon who agreed to evaluate the patient for further care. Impression Peritonsillar abscess Discharge Plan Visit Data Chief Complaint: Throat Pain Stated Complaint: RT TONSIL SWOLLEN, NECK/EAR PAIN ED Provider: Abimael Ascencio ED Midlevel Provider: Fiona Quigley Discharge Problem: Peritonsillar abscess Patient Disposition: Admitted As Inpatient Discharge Instructions Interventions: ED Discharge Assessment Last Done: 05/15/23 02:56
[2023-05-15] MEDS: ASPIRIN 81 MG ECTAB PO SCH (08:30)
[2023-05-15] MEDS: SERTRALINE HCL 50 MG TABLET PO SCH (08:30)
[2023-05-15] MEDS: ATORVASTATIN 10 MG TAB PO SCH (08:30)
--- NOTE | 2023-05-15 08:39 | Hospitalist Progress Note ---
Date of Service May 15, 2023 Assessment & Plan (1) Tonsillar abscess: Plan: 52yo female with sore throat x 1 week, acutely worsening over the last 4 days with increase in right sided throat pain and swelling. Patient has been on Augmentin x 3 days and has been taking Tylenol and Ibuprofen with minimal relief. [place] NEGATIVE. Patient was not checked for Strep throat (has been on Augmentin.) CT soft tissue neck with right sided tonsillar abscess Dexamethasone given, no airway obstruction -Observation to medical -Continue Clindamycin -Tylenol and Ibuprofen as needed -Await ENT evaluation (2) Anxiety and depression: Plan: Chronic and stable -Continue Sertraline Admission and Anticipated Discharge Date Admission Date: May 15, 2023 Subjective Patient is awake sitting up in bed. She states she is feeling much better this AM. ENT has not evaluated patient yet today. She is currently NPO, awaiting ENT eval. She denies any fevers, nausea or vomiting. She states she feels like her swallowing function is improved today. She denies any CP or SOB. Review of Systems Constitutional: + fatigue; no fever, no chills, no sweats and no body aches Ear, Nose, Mouth, Throat: + nasal congestion, + post nasal drip, + sore throat, + dysphagia, + pain with swallowing and + neck lump; no ear pain, no facial pain and no bleeding gums Respiratory: no cough, no dyspnea and no hemoptysis Cardiovascular: no chest pain, no dyspnea and no edema Gastrointestinal: no abdominal pain, no nausea and no vomiting Integumentary: no rash, no lesions and no new lesions Neurologic: no falls, no dizziness and no headache(s) Endocrine: no polydipsia, no polyphagia and no polyuria Physical Exam Constitutional: WD/WN, vitals as above Neck: trachea midline; no tracheal deviation and no neck crepitus shotty tonsillar lymph nodes palpated Respiratory: normal respiratory effort, lungs clear to auscultation Cardiovascular: RRR, no murmur, no edema Gastrointestinal (Abdomen): normal bowel sounds, soft, nontender, no hepatosplenomegaly Skin: no rashes, warm and dry Psychiatric: A+Ox3, euthymic affect Results & Data Results & Data Vital Signs (Past 12 Hours) Vital Signs Temp Pulse Pulse Resp BP BP Pulse Ox 05/15/23 07:11 36.7 C 84 18 109/70 97 05/15/23 03:40 36.6 C 72 18 119/73 94 05/15/23 01:30 64 15 110/70 94 05/15/23 01:00 68 17 108/67 93 05/15/23 00:00 68 14 104/70 94 05/15/23 00:30 71 16 112/69 93 05/14/23 23:27 69 17 109/70 94 05/14/23 21:21 36.9 C 78 18 120/77 97 O2 Del Method 05/15/23 07:11 Room Air 05/15/23 03:40 Room Air 05/15/23 01:30 Room Air 05/15/23 01:00 Room Air 05/15/23 00:00 Room Air 05/15/23 00:30 Room Air 05/14/23 23:27 Room Air 05/14/23 21:21 Room Air Laboratory Results Abnormal lab results 05/14/23 05/14/23 Range/Units 22:09 22:09 RBC 3.99 L (4.20-5.40) M/uL Hgb 11.4 L (12.0-16.0) g/dl Hct 32.9 L (37.0-47.0) % Plt Count 103 L (130-400) K/uL Alkaline Phosphatase 107 H (34-104) U/L Diagnostic Findings Soft Tissue Neck CT 05/14/23 21:45 Exam(s): CT NECK With Contrast IV Amt: 90ml Optiray 320 EXAM: CT Neck With Intravenous Contrast CLINICAL HISTORY: Reason for exam: right sided throat/neck pain, tonsillitis. TECHNIQUE: Axial computed tomography images of the neck with intravenous contrast. CTDI is 17.93 mGy and DLP is 552.76 mGy-cm. Automated exposure control was utilized for the study. A dose lowering technique was utilized adhering to the principles of ALARA. CONTRAST: Patient received 90ml Optiray 320 of IV contrast COMPARISON: No relevant prior studies available. FINDINGS: Oropharynx: 0.7 cm low density in the right palatine tonsil best seen on series 2 image 47 concerning for a tonsillar abscess. Hypopharynx: Unremarkable. Larynx: Unremarkable. Normal epiglottis. Trachea: Unremarkable. Retropharyngeal space: Unremarkable. Submandibular/parotid glands: Unremarkable. Glands are normal in size. Thyroid: Unremarkable. No enlarged or calcified nodules. Bones/joints: No acute fracture. Soft tissues: Unremarkable. Vasculature: No acute findings. Lymph nodes: Unremarkable. No lymphadenopathy. Lung apices: Unremarkable as visualized. IMPRESSION: 0.7 cm low density in the right palatine tonsil best seen on series 2 image 47 concerning for a tonsillar abscess. Electronically signed by: Tucker Campa M.D. 05/15/23 00:47 AM PG Care Time/CCT Total # of Minutes Spent Total Time Spent with Patient: Total time spent is greater than 50% in coordination of care (as documented) at patient's floor/unit and/or counseling patient: Coding Level of Care Code None Diagnoses Tonsillar abscess J36 Anxiety and depression F41.9; F32.9
[2023-05-15] MEDS: CLINDAMYCIN/D5W 600 MG/50 ML BAG IV SCH ×2 (10:06→17:35)
--- NOTE | 2023-05-15 15:28 | ENT Consultation ---
Date of Consultation May 15, 2023 Assessment & Plan (1) Acute tonsillitis: (2) Peritonsillar abscess: I have discussed options with the patient. I think she would benefit by having a tonsillectomy. She requires 24 hours of antibiotics and steroids. Thereby she can be discharged on oral antibiotics. I will arrange a tonsillectomy for 1 month. History of Present Illness Reason for Consultation: Sore throat Attending Physician: Julito Barnes History of Present Illness Patient is a 52-year-old female who has had problems with sore throats. She has had 3 infections since November. This last infection started a week ago. She has been on oral medications. He has improved since she has been in the hospital Allergies Allergy/AdvReac Type Severity Reaction Status Date / Time Cyanoacrylates Allergy Intermediate DERMABOND Verified 05/14/23 22:11 edema at site sumatriptan Allergy Intermediate Hot Verified 05/14/23 22:11 Sensations, Skin "Prickly" feeling codeine AdvReac Severe Migraine Verified 05/14/23 22:11 fentanyl AdvReac Severe Migraine Verified 05/14/23 22:11 hydrocodone AdvReac Severe Migraine Verified 05/14/23 22:11 hydromorphone [From Dilaudid] AdvReac Severe Migraine Verified 05/14/23 22:11 isosorbide AdvReac Severe Migraine Verified 05/14/23 22:11 morphine AdvReac Unknown migraine Verified 05/14/23 22:11 Home Medications Medication Instructions Recorded Confirmed Type albuterol sulfate 90 mcg/actuation 2 puff inhalation Q6H PRN 11/17/20 05/14/23 History aerosol inhaler Shortness Of Breath Or Wheezing naproxen 500 mg tablet (Naprosyn) 500 mg PO BID PRN Pain 11/17/20 05/14/23 History aspirin 81 mg tablet,delayed 81 mg PO QAM #30 tabs 11/19/20 05/14/23 Rx release nitroglycerin 0.4 mg sublingual 0.4 mg sublingual PRN PRN chest 03/15/21 05/14/23 Rx tablet (Nitrostat) pain #20 tabs azelastine 137 mcg (0.1 %) nasal 1 spray intranasal DAILY PRN 01/13/22 05/14/23 History spray aerosol Congestion atorvastatin 10 mg tablet 5 mg PO DAILY 01/17/23 05/14/23 History acetaminophen 325 mg tablet 650 mg PO DIRECTED PRN 05/14/23 05/14/23 History (Tylenol) PAIN/FEVER amoxicillin 875 mg-potassium 1 tab PO BID 05/14/23 05/14/23 History clavulanate 125 mg tablet fluconazole 150 mg tablet 150 mg PO DIRECTED PRN NEEDED 05/14/23 05/14/23 History ibuprofen 200 mg tablet 400 mg PO DIRECTED PRN 05/14/23 05/14/23 History PAIN/FEVER sertraline 50 mg tablet 50 mg PO DAILY 05/14/23 05/14/23 History prednisone 10 mg tablet See Rx Instructions .Route 05/16/23 Rx .COMPLEX #10 tabs Patient History Medical History Anxiety and depression History of colon cancer SURGERY AND CHEMO History of COVID-14 JUNE 2020 (MILD SYMPTOMS-RESOLVED NOW) Hx of chest pain Spontaneous coronary dissection-FOLLOWS WITH ARIEL Owens Post traumatic stress disorder Teeth grinding WEARS MOUTH GUARD AT NIGHT Surgical History Family history of reaction to anesthesia MOTHER AND SISTER>SLOW TO WAKE UP AND NAUSE History of cardiac cath NO STENTS> History of colon resection History of colonoscopy History of hysterectomy 08/26/2015 [place] teeth removed Family History Mother Cancer Diabetes Heart disease Hypertension Sarcoma Father Epilepsy Other No family history of adverse response to anesthesia No family history of bleeding disorder Social History Smoking Status: Never smoker Second Hand Exposure: No; Do You Dip or Chew Tobacco: No; Hx Alcohol Use: No Hx Substance Use: No Preferred Language: Sinhala Communication Ability: Effective Raveler Required: No Beliefs That Will Affect Care: None Current Living Situation: Alone 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 No itching or pain. No drainageor swelling. No hearing loss or tinnitus. No dizziness. No family history of hearing loss or vertigo. No history of recurrent otitis media. No history of swimmers ear. No history of loud noise exposure or ear trauma. Nose and sinuses: No history of nasal obstruction or congestion. No history of nasal discharge or epistaxis. No complaints of dryness or crusting. No facial or dental pain or pressure. No numbness or swelling of the face. No visual changes. No sneezing or itching of the eyes or nose. No known environmental allergies. No family history of allergies. No history of nasal trauma or surgery No history of nasal spray use. Neck: Patient has no swelling in the neck. There is no history of neck infections, neck tumors or skin problems. The patient has no history of thyroid disease and no family history of thyroid disease or thyroid cancer. The patient has not had neck surgery. Physical Exam Physical Exam: General appearance: Patient is alert, appropriately oriented and in no obvious distress with regard to breathing. Ears: Examination of the auricle, pinnae, conchae, tragus, and lobule skin and cartilage was normal. External auditiory canal bony and cartilaginous portions normal with no inflammation or discharge. Tympanic membrane normal. Middle ear space aerated with no fluid. Nose: Examination of the skin overlying the dorsum of the nose is normal. The vestibule is normal and the columella is straight. No nasal valve collapse. Nasal septum is straight . There is normal nasal mucosa with no evidence of polypoid tissue. Oral: Normal lip skin and mucosa. Lingual mucosa is normal. Floor of mouth normal. Buccal mucosa normal. Teeth are normal. Oropharynx: Normal examination, tonsil size 3 on the right side 1 on the left side there is an exudate on the tonsil on the right side, [place]idman palate position 2. Posterior pharyngeal wall normal. Normal base of tongue, lateral pharyngeal wall, valleculae and epiglottis. Larynx and hypopharynx: Normal aryepiglottic folds and postcricoid area. Normal false cords and ventric les. Normal true cords mucosa and movement. Normal subglottis. No tumors, polyps or leukoplakia Neck: No skin lesions. No adenopathy or masses. trachae is midline. No thyroid enlargement, tenderness or masses. Temporomandibular joint []. Results & Data Vital Signs (Past 12 Hours) Vital Signs Temp Pulse Resp BP Pulse Ox O2 Del Method 05/15/23 07:11 36.7 C 84 18 109/70 97 Room Air 05/15/23 03:40 36.6 C 72 18 119/73 94 Room Air PG Care Time/CCT Total # of Minutes Spent Total Time Spent with Patient: Total time spent is greater than 50% in coordination of care (as documented) at patient's floor/unit and/or counseling patient: Coding Level of Care Code 51210 IN/OBS CONSULT LVL 2,35M Diagnoses Acute tonsillitis J03.90 Peritonsillar abscess J36
[2023-05-16] MEDS: CLINDAMYCIN/D5W 600 MG/50 ML BAG IV SCH ×2 (02:37→09:00)
[2023-05-16] MEDS: ATORVASTATIN 10 MG TAB PO SCH (08:58)
[2023-05-16] MEDS: ASPIRIN 81 MG ECTAB PO SCH (09:00)
[2023-05-16] MEDS: SERTRALINE HCL 50 MG TABLET PO SCH (09:00)
--- NOTE | 2023-05-16 13:06 | Discharge Summary ---
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 Patient developed a sore throat 1 week ago which persisted. On 05/11/23 she noted worsening pain and swelling of the right side of her neck with pain into her ear, neck and face. She was prescribed Augmentin which she has been taking as directed. She has also been taking Tylenol and Ibuprofen with minimal relief. Found to have right tonsillar abscess. In the ER she is afebrile, HD stable, NAD ER Course: Dexamethasone 10mg IV Clindamycin 600mg IV Principal Diagnosis tonsillar abscess Discharge Exam General: patient resting comfortably, NAD, non-toxic in appearance, AA&O x 4 Skin: warm, dry, intact, no rashes or lesions HEENT: NC/AT, PERRL, EOMI Heart: +S1/S2, regular, no m/r/g Lungs: equal air entry bilaterally, no rales/rhonchi/wheezes Abd: +BS, soft, NT/ND, no masses/organomegaly/ascites Ext: warm, 2+ pulses in UE/LE bilaterally, no clubbing/cyanosis or edema Neuro: nonfocal, patient AA&O x 4, speech intact, no facial droop, moving all extremities on command with equal strength 5/5 Discharge Data Allergies Allergy/AdvReac Type Severity Reaction Status Date / Time Cyanoacrylates Allergy Intermediate DERMABOND Verified 05/14/23 22:11 edema at site sumatriptan Allergy Intermediate Hot Verified 05/14/23 22:11 Sensations, Skin "Prickly" feeling codeine AdvReac Severe Migraine Verified 05/14/23 22:11 fentanyl AdvReac Severe Migraine Verified 05/14/23 22:11 hydrocodone AdvReac Severe Migraine Verified 05/14/23 22:11 hydromorphone [From Dilaudid] AdvReac Severe Migraine Verified 05/14/23 22:11 isosorbide AdvReac Severe Migraine Verified 05/14/23 22:11 morphine AdvReac Unknown migraine Verified 05/14/23 22:11 Consultations 05/15/23 03:22 Consult Otolaryngology (Head and Neck) Routine Ordered Studies 05/14/23 21:45 CT soft tissue neck w con Stat Hospital Course (1) Tonsillar abscess: 52yo female with sore throat x 1 week, acutely worsening over the last 4 days with increase in right sided throat pain and swelling. Patient has been on Augm entin x 3 days and has been taking Tylenol and Ibuprofen with minimal relief. [place] NEGATIVE. Patient was not checked for Strep throat (has been on Augmentin.) CT soft tissue neck with right sided tonsillar abscess Dexamethasone given, no airway obstruction -Observation to medical -Continue Clindamycin -Tylenol and Ibuprofen as needed -Patient's symptoms improved. Appreciate ENT. will continue antibiotics to complete [address] on a 4 day taper of steroids. Plan for tonsillectomy/ (2) Anxiety and depression: Chronic and stable -Continue Sertraline Total Time Total Time Spent Total Time Spent (In Minutes): 32 Discharge Plan Discharge Items Patient Disposition: Home - Self-Care Reason For Visit: SORE THROAT, PERITONSILAR ABSCESS Discharge Diagnosis: as above Activity: Resume your previous activity Non-emergency contact: Primary Care Provider Call non-emergency contact if: you have any medication questions Follow-up/Referrals: Blanca Atkins CRNP [Primary Care Provider] - 05/23/23 10:25 am (DR CAMPOS AT [facility] LOC[facility]) Diet: Regular Addtl Attending Provider Instructions: Please take augmentin tonight at 18:00 and then tomorrow at 7:00 and 19:00. then continue that time. If you can continue on the 6 o clock, you may. Please continue antibiotics until finished. Dr. Maradiaga's office will schedule a followup with you. You will also be discharged on oral steroids for 4 days. Pending Studies at Discharge: No Stand-Alone Forms: [facility] Dancing[employer]ch[employer], Smoking Cessation Medications and DC Order Prescriptions: New prednisone 10 mg tablet See Rx Instructions .ROUTE .COMPLEX Qty: 10 0RF Rx Instructions: Take by mouth 4 tablets in AM for 1 day 3 tablets for 1 day 2 tablets for 1 day 1 tablet for 1 day Continued nitroglycerin [Nitrostat] 0.4 mg tablet, sublingual 0.4 mg sublingual PRN PRN (Reason: chest pain) Qty: 20 1RF atorvastatin 10 mg tablet 5 mg PO DAILY albuterol sulfate 90 mcg/actuation Hfa Aerosol Inhaler 2 puff INHALATION Q6H PRN (Reason: Shortness Of Breath Or Wheezing) naproxen [Naprosyn] 500 mg tablet 500 mg PO BID PRN (Reason: Pain) aspirin 81 mg Tablet,Delayed Release (Dr/Ec) 81 mg PO QAM Qty: 30 11RF azelastine 137 mcg (0.1 %) aerosol,spray 1 spray INTRANASAL DAILY PRN (Reason: Congestion) acetaminophen [Tylenol] 325 mg Tablet 650 mg PO DIRECTED PRN (Reason: PAIN/FEVER) fluconazole 150 mg tablet 150 mg PO DIRECTED PRN (Reason: NEEDED) ibuprofen 200 mg Tablet 400 mg PO DIRECTED PRN (Reason: PAIN/FEVER) sertraline 50 mg Tablet 50 mg PO DAILY amoxicillin-pot clavulanate 875-125 mg tablet 1 tab PO BID Rx Instructions: STARTED 05/11/23 FOR 10 DAYS. Discharge Orders: Discharge Order (Routine); Ordered 05/16/23 Ordered By: Julito Barnes Admission Data Admit Date/Time: 05/15/23 02:01 Attending Provider: Julito Barnes Admit Provider: Felicitas Gordon Primary Care Provider: Blanca Atkins Other Providers: Barrie Maradaiga Other Interventions: Discharge Summary Assessment (RN) Last Done: 05/16/23 14:11 Coding Level of Care Code 36743 INP/OBS DISCH >30 MIN Diagnoses Tonsillar abscess J36 Anxiety and depression F41.9; F32.9
== END 2023-05-16 14:55 | disposition home or self-care (01) ==
LOC: 3N 21:17 → ED 21:17 → SUATTDRO 05-15 02:01 → 3N 05-15 02:56